=== PATIENT | male | born 1955 | race Caucasian/White ===

== ENCOUNTER 2019-03-03 20:25 | Emergency (ER) | payer SELFPAY ==
[2019-03-03] MEDS ORDERED: XYLOCAINE 2% INFILTRATI ONE (22:00)
[2019-03-03] MEDS ORDERED: BOOSTRIX IM ONE (22:45)
[2019-03-03] MEDS ORDERED: NORCO 5/325 PO ONE (22:45)
--- NOTE | 2019-03-03 22:47 | Emergency Department Report ---
- General Chief Complaint: Wound/Laceration Stated Complaint: LEFT FOOT CUT Time Seen by Provider: 03/03/19 21:42 Source: patient Mode of arrival: Ambulatory Limitations: No Limitations - History of Present Illness Initial Comments: 63-year-old male patient assessed for left wrist and left foot states he cut it with a dishwasher while cleaning drive way y this was an accident last tetanus greater than 10 years ago all bleeding was controlled by direct pressure applied the patient patient remains ambulatory there is no nerve muscle or tendon involvement no numbness no tingling no swelling Onset/Timin -: hour(s) Extremity Location: Left: Foot Place: home Patient Tetanus UTD: No Context: accidental Associated Symptoms: pain, other (dorsal foot laceration ) - Related Data Previous Rx's Medication Instructions Recorded Last Taken Type cephALEXin [Keflex] 500 mg PO Q8HR 10 Days #30 cap 03/03/19 Unknown Rx traMADol [Ultram] 50 mg PO Q6HR PRN #12 tablet 03/03/19 Unknown Rx Allergies Allergy/AdvReac Type Severity Reaction Status Date / Time No Known Allergies Allergy Unverified 03/03/19 20:57 ED Review of Systems ROS: Stated complaint: LEFT FOOT CUT Other details as noted in HPI Constitutional: denies: chills, fever Eyes: denies: eye pain, eye discharge, vision change ENT: denies: ear pain, throat pain Respiratory: denies: cough, shortness of breath, wheezing Cardiovascular: denies: chest pain, palpitations Endocrine: no symptoms reported Gastrointestinal: denies: abdominal pain, nausea, diarrhea Genitourinary: denies: urgency, dysuria Musculoskeletal: other (dorsal foot laceration 3 cm ). denies: back pain, joint swelling, arthralgia Skin: denies: rash, lesions Neurological: denies: headache, weakness, paresthesias Psychiatric: denies: anxiety, depression Hematological/Lymphatic: denies: easy bleeding, easy bruising ED Past Medical Hx - Past Medical History Previous Medical History?: No - Surgical History Past Surgical History?: No - Social History Smoking Status: Never Smoker Substance Use Type: Alcohol - Medications Home Medications: Home Medications Medication Instructions Recorded Confirmed Last Taken Type cephALEXin [Keflex] 500 mg PO Q8HR 10 Days #30 cap 03/03/19 Unknown Rx traMADol [Ultram] 50 mg PO Q6HR PRN #12 tablet 03/03/19 Unknown Rx ED Physical Exam - General Limitations: No Limitations General appearance: alert, in no apparent distress - Head Head exam: Present: atraumatic, normocephalic - Eye Eye exam: Present: normal appearance, PERRL, EOMI Pupils: Present: normal accommodation - ENT ENT exam: Present: mucous membranes moist - Neck Neck exam: Present: normal inspection, full ROM. Absent: tenderness, lymphadenopathy - Respiratory Respiratory exam: Present: normal lung sounds bilaterally. Absent: respiratory distress, wheezes, stridor, chest wall tenderness - Cardiovascular Cardiovascular Exam: Present: regular rate, normal rhythm, normal heart sounds. Absent: systolic murmur, diastolic murmur, rubs, gallop - GI/Abdominal GI/Abdominal exam: Present: soft, normal bowel sounds. Absent: distended, tenderness, guarding, rebound, rigid, bruit, hernia - Rectal Rectal exam: Present: deferred - Extremities Exam Extremities exam: Present: normal inspection, full ROM, normal capillary refill - Back Exam Back exam: Present: normal inspection, full ROM, CVA tenderness (L). Absent: CVA tenderness (R), muscle spasm, paraspinal tenderness - Neurological Exam Neurological exam: Present: alert, oriented X3, CN II-XII intact, normal gait, reflexes normal. Absent: motor sensory deficit - Psychiatric Psychiatric exam: Present: normal affect, normal mood - Skin Skin exam: Present: warm, dry, intact, normal color, other (laceration left dorsal foot . ). Absent: rash ED Course Vital Signs 03/03/19 20:57 Temperature 98.2 F Pulse Rate 51 L Respiratory 18 Rate Blood Pressure 189/81 O2 Sat by Pulse 100 Oximetry - Laceration /Wound Repair Left Dorsal Foot Wound Location: lower extremity (left dorsal foot) Wound Length (cm): 3 Wound's Depth, Shape: superficial Wound Explored: clean Irrigated w/ Saline (ccs): 20 Betadine Prep?: Yes Anesthesia: 1% Lidocaine Volume Anesthetic (ccs): 2 Wound Debrided: minimal Wound Repaired With: sutures Suture Size/Type: 3:0, proline Number of Sutures: 5 Layer Closure?: No Progress: left dorsal foot laceration 3 cm wound cleaned with betadine solution, anesthesia with 1% lidocaine 2 cc, wound irrigated wtih 20 cc sterile saline cl osed wtih 3.0 proline x 5 sutures, all bleeding controlled pt tolerated procedure with minimal distress pt given wound care instructions will follow up with pcp in 2 days for wound check , and 7-10 days for suture removal ED Medical Decision Making - Medical Decision Making laceration repair see procedure noted all bleed is controlled sterile dressing applied pt will follow up with pcp in 2-3 days and 7-10 days for suture removal. Critical care attestation.: If time is entered above; I have spent that time in minutes in the direct care of this critically ill patient, excluding procedure time. ED Disposition Clinical Impression: Foot laceration Qualifiers: Encounter type: initial encounter Laterality: left Qualified Code(s): S91.312A - Laceration without foreign body, left foot, initial encounter Disposition: TO HOME OR SELFCARE Is pt being admited?: No Does the pt Need Aspirin: No Condition: Stable Instructions: Laceration (ED) Prescriptions: cephALEXin [Keflex] 500 mg PO Q8HR 10 Days #30 cap traMADol [Ultram] 50 mg PO Q6HR PRN #12 tablet PRN Reason: Pain Referrals: JACKSON RICCI MD [Primary Care Provider] - 3-5 Days Forms: Work/School Release Form(ED) Time of Disposition: 22:57
[2019-03-03 23:27] VITALS: BP 182/82
== END 2019-03-03 23:10 | disposition home or self-care (01) ==
LOC: ED 20:25
DX: S91.312A Laceration without foreign body, left foot, initial encounter (principal); W27.8XXA Contact with other nonpowered hand tool, initial encounter; Y93.89 Activity, other specified; Y92.89 Other specified places as the place of occurrence of the external cause; Y99.8 Other external cause status
CPT/HCPCS: 90471; 90715; 99282

== ENCOUNTER 2019-03-13 18:03 | Emergency (ER) | payer SELFPAY ==
--- NOTE | 2019-03-13 19:04 | Event Note ---
ED Screening Note Date of service: 03/13/19 Time: 19:02 ED Screening Note: This is a 63 y.o. M. that presents to the ER for laceration removal from 10 days. Denies foul discharge, swelling, or erythema. This initial assessment/diagnostic orders/clinical plan/treatment(s) is/are subject to change based on patients health status, clinical progression and re- assessment by fellow clinical providers in the ED. Further treatment and workup at subsequent clinical providers discretion. Patient/guardian urged not to elope from the ED as their condition may be serious if not clinically assessed and managed. Initial orders include: ACC for further evaluation.
--- NOTE | 2019-03-13 20:17 | Emergency Department Report ---
Suture/Staple Removal - HPI Chief Complaint: Laceration/Recheck/Suture Stated Complaint: SUTURE REMOVAL Time Seen by Provider: 03/13/19 19:01 When Sutures or Rito Placed: 03/03/19 Wound Location: left dorsal foot ED Review of Systems ROS: Stated complaint: SUTURE REMOVAL Other details as noted in HPI Comment: All other systems reviewed and negative ED Past Medical Hx - Past Medical History Previous Medical History?: No - Surgical History Past Surgical History?: No - Social History Smoking Status: Never Smoker Substance Use Type: None - Medications Home Medications: Home Medications Medication Instructions Recorded Confirmed Last Taken Type cephALEXin [Keflex] 500 mg PO Q8HR 10 Days #30 cap 03/03/19 Unknown Rx traMADol [Ultram] 50 mg PO Q6HR PRN #12 tablet 03/03/19 Unknown Rx Suture Removal Exam - Exam General: Vital signs noted. No distress. Alert and acting appropriately. Wound: No Pathologic Erythema, No Tenderness, No Drainage, No Pus, No Wound Dehiscence Other Systems: All other systems reviewed and are unremarkable. well healed laceration with sutures in place to the left dorsal foot no erythema, no drainage, no skin denuding, no wound dehiscence 2+ distal pulses sensation intact FROM of the left foot able to move all toes ED Course Vital Signs 03/13/19 19:01 Temperature 98.1 F Pulse Rate 53 L Respiratory 16 Rate Blood Pressure 188/92 O2 Sat by Pulse 100 Oximetry ED Recheck MDM - Medical Decision Making pt is a 63 yo male who presents to the ED for suture removal. pt had sutures placed on 03/03/19 on the left dorsal foot. laceration is well healed, well approximated, clean, dry, intact, no signs of infection, no wound dehiscence, all sutures removed without difficultly and with no complications and laceration is healed and well intact. pt given tetanus immunization during last ED visit. pt states he finished his abx. Critical care attestation.: If time is entered above; I have spent that time in minutes in the direct care of this critically ill patient, excluding procedure time. ED Disposition Clinical Impression: Visit for suture removal Disposition: DC-01 TO HOME OR SELFCARE Is pt being admited?: No Does the pt Need Aspirin: No Condition: Stable Instructions: Suture Removal (ED) Additional Instructions: Continue to keep area clean and dry. May wash with soap and water. It is okay to shower. no hot tub or pool. Follow-up with a primary care doctor as needed. Return to the emergency room for any new or worsening symptoms. Referrals: [facility] [Outside] - 2-3 Days [facility] [Provider Group] - 2-3 Days [facility] [Outside] - 2-3 Days Time of Disposition: 20:16 Print Language: URDU
[2019-03-13 21:03] VITALS: BP 170/84
== END 2019-03-13 20:30 | disposition home or self-care (01) ==
LOC: ED 18:03
DX: S91.312D Laceration without foreign body, left foot, subsequent encounter (principal); W26.8XXD Contact with other sharp object(s), not elsewhere classified, subsequent encounter

== ENCOUNTER 2020-08-09 11:21 | Observation (INO) | payer OTHER ==
--- NOTE | 2020-08-09 11:31 | Event Note ---
ED Screening Note Date of service: 08/09/20 Time: 11:29 ED Screening Note: Complains of stroke symptoms starting around 530 this morning States he had drooping to one side of his face and unable to move and diaphoresis History of stroke and hypothyroidism Symptoms have resolved This initial assessment/diagnostic orders/clinical plan/treatment(s) is/are subject to change based on patients health status, clinical progression and re- assessment by fellow clinical providers in the ED. Further treatment and workup at subsequent clinical providers discretion. Patient/guardian urged not to elope from the ED as their condition may be serious if not clinically assessed and managed. Initial orders include: Labs CT head EKG
--- NOTE | 2020-08-09 12:39 | Cat Scan Report ---
CT BRAIN: 08/09/2020 INDICATION / CLINICAL INFORMATION: stroke symptoms. COMPARISON: None available. FINDINGS: BRAIN/INTRACRANIAL STRUCTURES: Unenhanced CT images of the brain demonstrate no evidence of acute int racranial abnormality. Ventricles and sulci are within normal limits of size and shape for a patient of this age. Moderate chronic white matter hypoattenuation is present in the peritrigonal white matter, consistent with chronic small vessel ischemic change. There is no CT evidence of acute large vessel territory ischemic injury, hemorrhage, or mass. There a re no abnormal extra-axial fluid collections. EXTRACRANIAL STRUCTURES: Unremarkable. IMPRESSION: No acute abnormality. All CT scans at this location are performed using dose reduction to ALARA by means of automated expos ure control. Signer Name: Scottie Traylor MD Signed: 08/09/2020 12:35 PM Workstation Name: [id number]
[2020-08-09 12:47] LABS: Basophils % (Auto) 0.4 % (0.0-1.8); Eosinophils % (Auto) 0.2 % (0.0-4.3); Hematocrit 39.3 % (35.5-45.6); Hemoglobin 13.3 gm/dl (11.8-15.2); Lymphocytes # (Auto) 0.9 K/mm3 (1.2-5.4); Lymphocytes % (Auto) 17.8 % (13.4-35.0); Mean Corpuscular HGB Conc 34 % (32-34); Mean Corpuscular Volume 97 fl (84-94); Monocytes # (Auto) 0.4 K/mm3 (0.0-0.8); Monocytes % (Auto) 7.7 % (0.0-7.3); Platelet Count 147 K/mm3 (140-440); Red Blood Count 4.04 M/mm3 (3.65-5.03); Red Cell Distribution Width 14.3 % (13.2-15.2)
[2020-08-09 13:03] LABS: INR 0.98 (0.87-1.13)
[2020-08-09 13:04] LABS: Partial Thromboplastin Time 33.6 Sec. (24.2-36.6); Thrombin Time 16.7 Sec. (15.1-19.6)
[2020-08-09 13:06] LABS: Creatine Kinase MB 2.4 ng/mL (0.0-4.0)
[2020-08-09 13:11] LABS: Alanine Aminotransferase 21 units/L (7-56); Albumin 4.3 g/dL (3.9-5); BUN/Creatinine Ratio 10; Blood Urea Nitrogen 10 mg/dL (9-20); Calcium 9.1 mg/dL (8.4-10.2); Hemolysis Index 3
--- NOTE | 2020-08-09 13:11 | Emergency Department Report ---
ED Neuro Deficit HPI - General Chief Complaint: Neuro Symptoms/Deficit Stated Complaint: POSS CVA Time Seen by Provider: 08/09/20 11:28 Source: patient Mode of arrival: Ambulatory Limitations: No Limitations - History of Present Illness Initial Comments: [facility] Tele[facility] Consult Services Stat Consult Date of Service: 08/09/2020 12:03:22 Impression: R56.9 - Seizures G45.9 - Transient cerebral ischaemic attack, unspecified Comments/Sign-Out: Brevity an unusual nature the symptoms suggest seizure TIAs another possibility. He needs MRI the brain without and with contrast, EEG, metabolic profile. I would not start him on medication list something obvious turns up or he has another event. If he does he see a local neurologist. EKG monitoring, echocardiogram, carotid ultrasound. CT HEAD: Showed No Acute Hemorrhage or Acute Core Infarct Reviewed No acute changes; radiology report concurs Metrics: [employer] Notification Time: 08/09/2020 12:02:47 Stamp Time: 08/09/2020 12:03:22 Callback Response Time: 08/09/2020 12:05:55 Our recommendations are outlined below. Recommendations: No medications at this time Imaging Studies: MRI Head Carotid Dopplers Other WorkUp: Check CMP Check B12 level Check TSH Disposition: Neurology Follow Up Recommended Sign Out: Discussed with Emergency Department Provider Chief Complaint: Episode of confusion History of Present Illness: Patient is a 64 year old Male. this is a 64-year-old man who was interviewed through his daughter because he is from [facility] and only speaks his wiyot language. He went to bed normal at 1999 last night and woke this morning at about 0530 confused. His told the murali bailey that his mouth was twisted as was one of his hands and he couldn't speak. This only lasted a minute or so and he was fine afterwards but has no memory of the event. Risk factors listed below noting he is on no medication. In addition he is hypothyroid in the past. Past Medical History: Hypertension Hyperlipidemia There is NO history of Diabetes Mellitus There is NO history of Atrial Fibrillation There is NO history of Coronary Artery Disease There is NO history of Stroke Anticoagulant use: No Examination: BP(144 74), Pulse(55), Blood Glucose(84) 1A: Level of Consciousness - Alert; keenly responsive + 0 1B: Ask Month and Age - Both Questions Right + 0 1C: Blink Eyes & Squeeze Hands - Performs Both Tasks + 0 2: Test Horizontal Extraocular Movements - Normal + 0 3: Test Visual Shah - No Visual Loss + 0 4: Test Facial Palsy (Use Grimace if Obtunded) - Normal symmetry + 0 5A: Test Left Arm Motor Drift - No Drift for 10 Seconds + 0 5B: Test Right Arm Motor Drift - No Drift for 10 Seconds + 0 6A: Test Left Leg Motor Drift - No Drift for 5 Seconds + 0 6B: Test Right Leg Motor Drift - No Drift for 5 Seconds + 0 7: Test Limb Ataxia (FNF/Heel-Card) - No Ataxia + 0 8: Test Sensation - Normal; No sensory loss + 0 9: Test Language/Aphasia - Normal; No aphasia + 0 10: Test Dysarthria - Normal + 0 11: Test Extinction/Inattention - No abnormality + 0 NIHSS Score: 0 Due to the immediate potential for life-threatening deterioration due to underlying acute neurologic illness, I spent 25 minutes providing critical care. This time includes time for face to face visit via telemedicine, review of medical records, imaging studies and discussion of findings with providers, the patient and/or family. Dr Hermes [facility] [employer] Case [id number] - Related Data Home Medications: Previous Rx's Medication Instructions Recorded Last Taken Type cephALEXin [Keflex] 500 mg PO Q8HR 10 Days #30 cap 03/03/19 Unknown Rx traMADoL [Ultram] 50 mg PO Q6HR PRN #12 tablet 03/03/19 Unknown Rx Allergies/Adverse Reactions: Allergies Allergy/AdvReac Type Severity Reaction Status Date / Time No Known Allergies Allergy Verified 03/13/19 18:45 ED Review of Systems ROS: Stated complaint: POSS CVA Other details as noted in HPI ED Past Medical Hx - Past Medical History Previous Medical History?: Yes Additional medical history: hyperthyroid - Surgical History Past Surgical History?: No - Social History Smoking Status: Never Smoker Substance Use Type: None - Medications Home Medications: Home Medications Medication Instructions Recorded Confirmed Last Taken Type cephALEXin [Keflex] 500 mg PO Q8HR 10 Days #30 cap 03/03/19 Unknown Rx traMADoL [Ultram] 50 mg PO Q6HR PRN #12 tablet 03/03/19 Unknown Rx ED Neuro Physical Exam - General Limitations: No Limitations, Language Barrier Suspected Stroke: No ED Course Vital Signs 08/09/20 11:29 Temperature 97 F L Pulse Rate 55 L Respiratory 18 Rate Blood Pressure 144/74 O2 Sat by Pulse 100 Oximetry - Lab Data Result diagrams: 08/09/20 12:04 08/09/20 12:04 Lab Results 08/09/20 08/09/20 08/09/20 Range/Units 11:29 12:04 12:04 WBC 5.2 (4.5-11.0) K/mm3 RBC 4.04 (3.65-5.03) M/mm3 Hgb 13.3 (11.8-15.2) gm/dl Hct 39.3 (35.5-45.6) % MCV 97 H (84-94) fl MCH 33 H (28-32) pg MCHC 34 (32-34) % RDW 14.3 (13.2-15.2) % Plt Count 147 (140-440) K/mm3 Lymph % (Auto) 17.8 (13.4-35.0) % Hitchcock % (Auto) 7.7 H (0.0-7.3) % Eos % (Auto) 0.2 (0.0-4.3) % Baso % (Auto) 0.4 (0.0-1.8) % Lymph # (Auto) 0.9 L (1.2-5.4) K/mm3 Hitchcock # (Auto) 0.4 (0.0-0.8) K/mm3 Eos # (Auto) 0.0 (0.0-0.4) K/mm3 Baso # (Auto) 0.0 (0.0-0.1) K/mm3 Seg Neutrophils % 73.9 H (40.0-70.0) % Seg Neutrophils # 3.8 (1.8-7.7) K/mm3 PT (12.2-14.9) Sec. INR (0.87-1.13) APTT (24.2-36.6) Sec. Thrombin Time (15.1-19.6) Sec. POC Glucose 84 (70-105) mg/dL CK-MB (CK-2) (0.0-4.0) ng/mL Troponin T < 0.010 (0.00-0.029) ng/mL 08/09/20 08/09/20 Range/Units 12:04 12:04 WBC (4.5-11.0) K/mm3 RBC (3.65-5.03) M/mm3 Hgb (11.8-15.2) gm/dl Hct (35.5-45.6) % MCV (84-94) fl MCH (28-32) pg MCHC (32-34) % RDW (13.2-15.2) % Plt Count (140-440) K/mm3 Lymph % (Auto) (13.4-35.0) % Hitchcock % (Auto) (0.0-7.3) % Eos % (Auto) (0.0-4.3) % Baso % (Auto) (0.0-1.8) % Lymph # (Auto) (1.2-5.4) K/mm3 Hitchcock # (Auto) (0.0-0.8) K/mm3 Eos # (Auto) (0.0-0.4) K/mm3 Baso # (Auto) (0.0-0.1) K/mm3 Seg Neutrophils % (40.0-70.0) % Seg Neutrophils # (1.8-7.7) K/mm3 PT 12.8 (12.2-14.9) Sec. INR 0.98 (0.87-1.13) APTT 33.6 (24.2-36.6) Sec. Thrombin Time 16.7 (15.1-19.6) Sec. POC Glucose (70-105) mg/dL CK-MB (CK-2) 2.4 (0.0-4.0) ng/mL Troponin T (0.00-0.029) ng/mL Critical care attestation.: If time is entered above; I have spent that time in minutes in the direct care of this critically ill patient, excluding procedure time. ED Disposition Clinical Impression: Seizure Disposition: DC-09 OP ADMIT IP TO THIS HOSP Is pt being admited?: Yes Condition: Stable Referrals: PRIMARY CARE, [Primary Care Provider] - 3-5 Days
--- NOTE | 2020-08-09 13:25 | Emergency Department Report ---
ED Neuro Deficit HPI - General Chief Complaint: Neuro Symptoms/Deficit Stated Complaint: POSS CVA Time Seen by Provider: 08/09/20 11:28 Source: patient Mode of arrival: Ambulatory Limitations: No Limitations, Language Barrier - History of Present Illness Initial Comments: Patient is a 64-year-old male with h/o hypertension,hyperlipidemia and hypothyroidism. He went to bed normal at 2000 last night and woke this morning at about 0530 confused. His told the daughter that his mouth was twisted as was one of his hands and he couldn't speak. This only lasted a minute or so and he was fine afterwards but has no memory of the event. Patient currently denying any symptoms except for mild dizziness. -: Sudden, This morning Location: speech, right face, altered Presenting Symptoms: Present: Facial Droop/Numbness, Unable to Speak Clearly History of same: No Place: home Associated Symptoms: denies other symptoms - Related Data Home Medications: Previous Rx's Medication Instructions Recorded Last Taken Type cephALEXin [Keflex] 500 mg PO Q8HR 10 Days #30 cap 03/03/19 Unknown Rx traMADoL [Ultram] 50 mg PO Q6HR PRN #12 tablet 03/03/19 Unknown Rx Allergies/Adverse Reactions: Allergies Allergy/AdvReac Type Severity Reaction Status Date / Time No Known Allergies Allergy Verified 03/13/19 18:45 ED Review of Systems ROS: Stated complaint: POSS CVA Other details as noted in HPI Comment: All other systems reviewed and negative Constitutional: denies: chills, fever Respiratory: denies: cough, shortness of breath, SOB with exertion Cardiovascular: denies: chest pain, palpitations, dyspnea on exertion Gastrointestinal: denies: abdominal pain, nausea, vomiting Musculoskeletal: denies: back pain Neurological: denies: headache, weakness ED Past Medical Hx - Past Medical History Previous Medical History?: Yes Additional medical history: hyperthyroid - Surgical History Past Surgical History?: No - Social History Smoking Status: Never Smoker Substance Use Type: None - Medications Home Medications: Home Medications Medication Instructions Recorded Confirmed Last Taken Type cephALEXin [Keflex] 500 mg PO Q8HR 10 Days #30 cap 03/03/19 Unknown Rx traMADoL [Ultram] 50 mg PO Q6HR PRN #12 tablet 03/03/19 Unknown Rx ED Neuro Physical Exam - General Limitations: No Limitations, Language Barrier General appearance: alert, in no apparent distress Suspected Stroke: Yes - Head Head exam: Present: atraumatic, normocephalic, normal inspection - Eye Eye exam: Present: normal appearance - ENT ENT exam: Present: normal exam, normal orophraynx, mucous membranes moist - Neck Neck exam: Present: normal inspection. Absent: tenderness, meningismus - Respiratory Respiratory exam: Present: normal lung sounds bilaterally - Cardiovascular Cardiovascular Exam: Present: regular rate, normal rhythm, normal heart sounds - GI/Abdominal GI/Abdominal exam: Present: soft, normal bowel sounds. Absent: distended, tenderness, guarding, rebound, rigid, mass, bruit, pulsatile mass, hernia - Extremities Exam Extremities exam: Present: normal inspection, full ROM, normal capillary refill. Absent: tenderness - Back Exam Back exam: Present: normal inspection, full ROM. Absent: CVA tenderness (R), CVA tenderness (L) - Neurological Exam Neurological exam: Present: alert, oriented X3, CN II-XII intact, normal gait, reflexes normal. Absent: motor sensory deficit - NIHSS Assessment Interval: Baseline 1a. Level of Consciousness: alert/keenly responsive 1b. LOC Questions: answers both correctly 1c. LOC Commands: performs tasks correctly 2. Best Gaze: normal 3. Visual: no visual loss 4. Facial Palsy: normal symmetrical movement 5b. Motor Arm Right: no drift 5a. Motor Arm Left: no drift 6a. Motor Leg Left: no drift 6b. Motor Leg Right: no drift 7. Limb Ataxia: absent 8. Sensory: normal 9. Best Language: no aphasia 10. Dysarthria: normal 11. Extinction/Inattention: no abnormality Total Score: 0 Stroke Severity: No Stroke Symptoms - Psychiatric Psychiatric exam: Present: normal mood - Skin Skin exam: Present: warm, intact, normal color ED Course Vital Signs 08/09/20 11:29 Temperature 97 F L Pulse Rate 55 L Respiratory 18 Rate Blood Pressure 144/74 O2 Sat by Pulse 100 Oximetry - Lab Data Result diagrams: 08/09/20 12:04 08/09/20 12:04 Lab Results 08/09/20 08/09/20 08/09/20 Range/Units 11:29 12:04 12:04 WBC 5.2 (4.5-11.0) K/mm3 RBC 4.04 (3.65-5.03) M/mm3 Hgb 13.3 (11.8-15.2) gm/dl Hct 39.3 (35.5-45.6) % MCV 97 H (84-94) fl MCH 33 H (28-32) pg MCHC 34 (32-34) % RDW 14.3 (13.2-15.2) % Plt Count 147 (140-440) K/mm3 Lymph % (Auto) 17.8 (13.4-35.0) % [place] % (Auto) 7.7 H (0.0-7.3) % Eos % (Auto) 0.2 (0.0-4.3) % Baso % (Auto) 0.4 (0.0-1.8) % Lymph # (Auto) 0.9 L (1.2-5.4) K/mm3 [place] # (Auto) 0.4 (0.0-0.8) K/mm3 Eos # (Auto) 0.0 (0.0-0.4) K/mm3 Baso # (Auto) 0.0 (0.0-0.1) K/mm3 Seg Neutrophils % 73.9 H (40.0-70.0) % Seg Neutrophils # 3.8 (1.8-7.7) K/mm3 PT (12.2-14.9) Sec. INR (0.87-1.13) APTT (24.2-36.6) Sec. Thrombin Time (15.1-19.6) Sec. Sodium 129 L (137-145) mmol/L Potassium 4.6 (3.6-5.0) mmol/L Chloride 95.4 L (98-107) mmol/L Carbon Dioxide 26 (22-30) mmol/L Anion Gap 12 mmol/L BUN 10 (9-20) mg/dL Creatinine 1.0 (0.8-1.3) mg/dL Estimated GFR > 60 ml/min BUN/Creatinine Ratio 10 % Glucose 92 (75-100) mg/dL POC Glucose 84 (70-105) mg/dL Calcium 9.1 (8.4-10.2) mg/dL Total Bilirubin 0.60 (0.1-1.2) mg/dL AST 33 (5-40) units/L ALT 21 (7-56) units/L Alkaline Phosphatase 58 (35-129) units/L Total Creatine Kinase (55-170) units/L CK-MB (CK-2) (0.0-4.0) ng/mL CK-MB (CK-2) Rel Index (0-4) Troponin T < 0.010 (0.00-0.029) ng/mL Total Protein 8.2 (6.3-8.2) g/dL Albumin 4.3 (3.9-5) g/dL Albumin/Globulin Ratio 1.1 % 08/09/20 08/09/20 Range/Units 12:04 12:04 WBC (4.5-11.0) K/mm3 RBC (3.65-5.03) M/mm3 Hgb (11.8-15.2) gm/dl Hct (35.5-45.6) % MCV (84-94) fl MCH (28-32) pg MCHC (32-34) % RDW (13.2-15.2) % Plt Count (140-440) K/mm3 Lymph % (Auto) (13.4-35.0) % [place] % (Auto) (0.0-7.3) % Eos % (Auto) (0.0-4.3) % Baso % (Auto) (0.0-1.8) % Lymph # (Auto) (1.2-5.4) K/mm3 [place] # (Auto) (0.0-0.8) K/mm3 Eos # (Auto) (0.0-0.4) K/mm3 Baso # (Auto) (0.0-0.1) K/mm3 Seg Neutrophils % (40.0-70.0) % Seg Neutrophils # (1.8-7.7) K/mm3 PT 12.8 (12.2-14.9) Sec. INR 0.98 (0.87-1.13) APTT 33.6 (24.2-36.6) Sec. Thrombin Time 16.7 (15.1-19.6) Sec. Sodium (137-145) mmol/L Potassium (3.6-5.0) mmol/L Chloride (98-107) mmol/L Carbon Dioxide (22-30) mmol/L Anion Gap mmol/L BUN (9-20) mg/dL Creatinine (0.8-1.3) mg/dL Estimated GFR ml/min BUN/Creatinine Ratio % Glucose (75-100) mg/dL POC Glucose (70-105) mg/dL Calcium (8.4-10.2) mg/dL Total Bilirubin (0.1-1.2) mg/dL AST (5-40) units/L ALT (7-56) units/L Alkaline Phosphatase (35-129) units/L Total Creatine Kinase 279 H (55-170) units/L CK-MB (CK-2) 2.4 (0.0-4.0) ng/mL CK-MB (CK-2) Rel Index 0.8 (0-4) Troponin T (0.00-0.029) ng/mL Total Protein (6.3-8.2) g/dL Albumin (3.9-5) g/dL Albumin/Globulin Ratio % - EKG Data -: EKG Interpreted by Me EKG shows normal: sinus rhythm Rate: bradycardia - Radiology Data Radiology results: report reviewed - Medical Decision Making Patient is a 64-year-old male with h/o hypertension,hyperlipidemia and hypoth yroidism. He went to bed normal at 2000 last night and woke this morning at about 0530 confused. His told the daughter that his mouth was twisted as was one of his hands and he couldn't speak. This only lasted a minute or so and he was fine afterwards but has no memory of the event. Patient currently denying any symptoms except for mild dizziness. Patient examined by neurologist and stated patient symptoms is TIA vs Seizure and advised to be admitted for further work-up. I discussed the patient with Dr Hoffman he agreed to admit to the hospital. Critical care attestation.: If time is entered above; I have spent that time in minutes in the direct care of this critically ill patient, excluding procedure time. ED Disposition Clinical Impression: Seizure, TIA (transient ischemic attack) Disposition: -09 OP ADMIT IP TO THIS HOSP Is pt being admited?: Yes Condition: Stable Referrals: PRIMARY CARE, [Primary Care Provider] - 3-5 Days
[2020-08-09] MEDS ORDERED: ONDANSETRON 4 MG/2 ML INJ IV PRN (14:02)
[2020-08-09] MEDS ORDERED: METOCLOPRAMIDE 10 MG TAB PO PRN (14:02)
[2020-08-09] MEDS ORDERED: ACETAMINOPHEN 325 MG TAB PO PRN (14:02)
[2020-08-09] MEDS ORDERED: MAGNESIUM HYDROXIDE (MOM) ORAL LIQD UDC PO PRN (14:02)
[2020-08-09] MEDS ORDERED: PROMETHAZINE 25 MG RECT SUPP PR PRN (14:02)
--- NOTE | 2020-08-09 14:06 | History and Physical Report ---
History of Present Illness Chief complaint: His mouth was twisted and he could not talk History of present illness: 64 YO Male with HTN, HLD, Hypothyroidism, Cerebral Atherosclerosis presents to ED for evaluation. Pt was in his usual state of health at bedtime which was around 2000hrs. Pt awoke from sleep around 0530hrs, and was found to have difficulty speaking and facial droop. Patient transported to [facility] via private vehicle for further care and evaluation. Patient seen and evaluated in the emergency department. Lab and imaging studies reviewed. Patient found to have neurologic deficit and a code stroke was called. Patient initiated on stroke protocol. Teleneurology consulted. Patient initiated on antiplatelet therapy. Patient placed in observation status and admitted to medical floor. Patient denies fever, chills, chest pain, palpitation, productive cough, skin rash, recent ill contacts, or known exposure to COVID-19. No prior admission for review. No medication listed at time of admission for reconciliation. Advanced care planning conducted in ED. Past History Past Medical History: hypertension, hyperlipidemia, hypothyroidism Past Surgical History: No surgical history, Other (Reviewed) Social history: , lives with family Family history: hypertension Medications and Allergies Allergies Allergy/AdvReac Type Severity Reaction Status Date / Time No Known Allergies Allergy Verified 03/13/19 18:45 Home Medications Medication Instructions Recorded Confirmed Last Taken Type cephALEXin [Keflex] 500 mg PO Q8HR 10 Days #30 cap 03/03/19 Unknown Rx traMADoL [Ultram] 50 mg PO Q6HR PRN #12 tablet 03/03/19 Unknown Rx Review of Systems Constitutional: no weight loss, no weight gain, no fever, no chills Ears, nose, mouth and throat: no ear pain, no ear discharge, no decreased hearing, no nose pain, no nasal discharge Cardiovascular: no chest pain, no orthopnea, no palpitations, no edema, no syncope, no shortness of breath Respiratory: no cough, no excessive sputum Gastrointestinal: no abdominal pain, no diarrhea, no constipation, no hematemesis Genitourinary Male: no hematuria, no flank pain, no discharge, no urinary frequency, no urinary hesitancy Rectal: no pain, no incontinence, no bleeding Musculoskeletal: no neck stiffness, no neck pain, no shooting arm pain, no arm numbness/tingling Integumentary: no rash, no pruritis, no redness, no sores, no wounds Neurological: weakness, lack of coordination, change in speech, motor disturbance, no tingling, no seizures, no tremors, no migraines Psychiatric: no anxiety, no memory loss, no sleep disturbances, no insomnia, no hypersomnia, no change in appetite Endocrine: no cold intolerance, no heat intolerance, no excessive thirst, no polydipsia, no polyuria, no excessive sweating Hematologic/Lymphatic: no easy bruising, no easy bleeding Allergic/Immunologic: no wheezing Exam - Constitutional Vitals: Temp Pulse Resp BP Pulse Ox 97 F L 55 L 18 144/74 100 08/09/20 11:29 08/09/20 11:29 08/09/20 11:29 08/09/20 11:29 08/09/20 11:29 General appearance: Present: mild distress - EENT Eyes: Present: PERRL ENT: hearing intact, clear oral mucosa - Neck Neck: Present: supple, normal ROM - Respiratory Respiratory effort: normal Respiratory: bilateral: CTA - Cardiovascular Heart Sounds: Present: S1 & S2. Absent: rub, click - Extremities Extremities: pulses symmetrical, No edema Peripheral Pulses: within normal limits - Abdominal General gastrointestinal: Present: soft, non-tender, non-distended, normal bowel sounds Male genitourinary: Present: normal - Integumentary Integumentary: Present: clear, warm, dry - Musculoskeletal Musculoskeletal: gait normal, strength equal bilaterally - Psychiatric Psychiatric: appropriate mood/affect, intact judgment & insight - Neurologic Neurologic: CNII-XII intact, moves all extremities HEART Score - HEART Score Troponin: Troponin T < 0.010 ng/mL (0.00-0.029) 08/09/20 12:04 Results - Labs CBC & Chem 7: 08/09/20 12:04 08/09/20 12:04 Labs: Abnormal lab results 08/09/20 08/09/20 08/09/20 Range/Units 12:04 12:04 12:04 MCV 97 H (84-94) fl MCH 33 H (28-32) pg [place] % (Auto) 7.7 H (0.0-7.3) % Lymph # (Auto) 0.9 L (1.2-5.4) K/mm3 Seg Neutrophils % 73.9 H (40.0-70.0) % Sodium 129 L (137-145) mmol/L Chloride 95.4 L (98-107) mmol/L Total Creatine Kinase 279 H (55-170) units/L Assessment and Plan - Patient Problems (1) CVA (cerebral vascular accident) Current Visit: Yes Status: Acute Plan to address problem: CVA protocol: CT head, neuro check, seizure precaution, aspiration precaution, physical therapy consulted, Occupational Therapy consulted speech therapy consulted, teleneurology consulted in ED, antiplatelet therapy, lipid panel, statin therapy. (2) Hyperlipidemia Current Visit: Yes Status: Acute Qualifiers: Hyperlipidemia type: mixed hyperlipidemia Qualified Code(s): E78.2 - Mixed hyperlipidemia Plan to address problem: Lipid panel, statin therapy. (3) Hypothyroidism Current Visit: Yes Status: Acute Qualifiers: Hypothyroidism type: acquired Qualified Code(s): E03.9 - Hypothyroidism, unspecified Plan to address problem: Continue current therapy, supportive care. (4) DVT prophylaxis Current Visit: Yes Status: Acute Plan to address problem: SCD to bilateral lower extremities while in bed, patient is ambulatory (5) Advance care planning Current Visit: Yes Status: Acute Plan to address problem: Patient is full code, care plan discussed, prognosis discussed, patient family knowledges understanding and agreement with care plan, +30 minutes.
--- NOTE | 2020-08-09 15:47 | Vascular Lab Report ---
"DUPLEX DOPPLER ULTRASOUND CAROTID, BILATERAL INDICATION: stroke. FINDINGS: RIGHT CAROTID: Mild plaque Right CCA velocity: 76 cm/sec. Right ICA peak systolic velocity: 107 cm/sec. ICA/CCA PSV Ratio: 1.4. Right Vertebral Artery: Antegrade flow. LEFT CAROTID: Mild plaque Left CCA velocity: 61 cm/sec. Left ICA peak systolic velocity: 119 cm/sec. ICA/CCA PSV Ratio: 2. Left Vertebral Artery: Antegrade flow. IMPRESSION: 1. Right Internal Carotid Artery: Less than 50% diameter stenosis. 2. Left Internal Carotid Artery: Less than 50% diameter stenosis. Velocity criteria are extrapolated from diameter data as defined by the Society of Radiologists in Ul trasound Consensus Conference, Radiology 2003; 229;340-346. Degree of Stenosis (%) || ICA PSV (cm/sec) || Plaque estimate (%) || ICA/CCA PSV Ratio Normal <125 None <2.0 <50 <125 <50 <2.0 50-69 125-230 50 2.0-4.0 70 but less than 100 >230 50 >4.0 Near occlusion High, low, or none visible variable Total occlusion None visible; no lumen N/A Signer Name: El Ceballos MD Signed: 08/09/2020 3:43 PM Workstation Name: [id number]"
[2020-08-10] MEDS ORDERED: ASPIRIN 325 MG TAB PO SCH (10:00)
[2020-08-10 10:21] LABS: Chol/HDL Ratio 3.35 %
--- NOTE | 2020-08-10 10:59 | Magnetic Resonance Report ---
MRI BRAIN WITHOUT CONTRAST INDICATION / CLINICAL INFORMATION: cva. TECHNIQUE: Multisequence, multiplanar images were obtained. COMPARISON: CT head dated 08/09/2019 FINDINGS: CEREBRAL and CEREBELLAR HEMISPHERES: No evidence of mass or mass effect. No midline shift. No acute hemorrhage. No diffusion restriction to suggest acute infarct. No extra-axial fluid collection. T here is mild to moderate increased T2 signal in the white matter of the posterior frontal lobes and p arietal lobes bilaterally consistent with chronic small vessel ischemic change. No chronic infarct. VENTRICLES: Normal in size and configuration for age. VISUALIZED ORBITS: No significant abnormality. VISUALIZED PARANASAL SINUSES: There is moderate mucosal thickening throughout all paranasal sinuses. The ethmoid air cells are most affected. ADDITIONAL FINDINGS: None. IMPRESSION: No evidence for acute ischemia, hemorrhage or mass. No acute intracranial process. Chronic ischemic changes in the white matter as described. Chronic pansinusitis as described. Signer Name: Travis Ordaz Jr, MD Signed: 08/10/2020 10:54 AM Workstation Name: [id number]
--- NOTE | 2020-08-10 11:17 | Consultation ---
History of Present Illness Consult date: 08/10/20 Reason for Consult: CVA Chief complaint: Transient facial weakness History of present illness: 64 yo male, right-handed, with htn, hld who presents with acute onset of his face being "twisted" per his , severe diaphoresis, and slurred speech. He had woken up around 5:00 am when these symptoms were noted. He had gone to bed after 1:00 am. His symptoms lasted for less than an hour. No associated chest pain/pressure. In the ED, no tPA as his symptoms had resolved. Past History Past Medical History: hypertension, hyperlipidemia, hypothyroidism Past Surgical History: No surgical history, Other (Reviewed) Social history: , lives with family Family history: hypertension Medications and Allergies Allergies Allergy/AdvReac Type Severity Reaction Status Date / Time No Known Allergies Allergy Verified 03/13/19 18:45 Home Medications Medication Instructions Recorded Confirmed Last Taken Type No Known Home Medications [No 08/09/20 08/09/20 Unknown History Reported Home Medications] Active Meds: Active Medications Acetaminophen (Acetaminophen 325 Mg Tab) 650 mg PO Q4H PRN PRN Reason: Pain, Mild (1-3) Aspirin (Aspirin 325 Mg Tab) 325 mg PO QDAY [facility] [place] Last Admin: 08/10/20 09:53 Dose: 325 mg Documented by: Atorvastatin Calcium (Atorvastatin 40 Mg Tab) 40 mg PO QHS [facility] [place] Last Admin: 08/09/20 22:27 Dose: 40 mg Documented by: Bisacodyl (Bisacodyl 10 Mg Rect Supp) 10 mg OR QDAY PRN PRN Reason: Constipation Magnesium Hydroxide (Magnesium Hydroxide (Mom) Oral Liqd Udc) 30 ml PO Q4H PRN PRN Reason: Constipation Metoclopramide HCl (Metoclopramide 10 Mg Tab) 10 mg PO Q6H PRN PRN Reason: Nausea And Vomiting Ondansetron HCl (Ondansetron 4 Mg/2 Ml Inj) 4 mg IV Q8H PRN PRN Reason: Nausea And Vomiting Promethazine HCl (Promethazine 25 Mg Rect Supp) 25 mg OR Q6H PRN PRN Reason: Nausea And Vomiting Sodium Chloride (Sodium Chloride 0.9% 10 Ml Flush Syringe) 10 ml IV PRN PRN PRN Reason: LINE FLUSH Review of Systems All systems: negative (as per HPI;) Physical Examination - Vital Signs Vital Signs: Vital Signs Temp Pulse Resp BP Pulse Ox 97 F L 55 L 18 144/74 100 08/09/20 11:29 08/09/20 11:29 08/09/20 11:29 08/09/20 11:08/09/20 11:29 - Physical Exam Narrative exam: Gen: nad, well-nourished; Head: normocephalic; Eyes: no gaze deviation; no ptosis; ENT: normal vocalization; CVS: warm and well-perfused; Pulm: no respiratory distress; GI: non-distended; Ext: no cyanosis at distal extremities; Skin: no acute rash or hives at distal extremities; Heme: no pathologic ecchymosis at distal extremities; Neuro: alert, oriented to name, age, month, year, surroundings, no dysarthria, no aphasia, CN 2 - PERRL, visual araiza intact, CN 3, 4, 6 - EOMI, CN 5 - facial sensation symmetric to light touch, CN 7 - facial movement symmetric, CN 8 - hearing grossly intact, CN 9, 10 - uvula midline, CN 11 - shrug symmetric, CN 12 - tongue midline; Motor - at least 5-/5 in all exts; Sensory - light touch symmetric, Cerebellar - fnf /hts intact, Gait - deferred secondary to fall risk; NIHSS (1a.) Level of Consciousness:0 (1b.) LOC Questions:0 (1c.) LOC Commands:0 (2.) Best Gaze:0 (3.) Visual:0 (4.) Facial Palsy:0 (5a.) Motor Arm, Left:0 (5b.) Motor Arm, Right:0 (6a.) Motor Leg, Left:0 (6b.) Motor Leg, Right:0 (7.) Limb Ataxia:0 (8.) Sensory:0 (9.) Best Language:0 (10.) Dysarthria:0 (11.) Extinction and Inattention:0 NIHSS Total Score: 0 Results - Laboratory Findings CBC and BMP: 08/09/20 12:04 08/09/20 12:04 Abnormal Lab Findings: Abnormal Labs 08/09/20 08/09/20 08/09/20 12:04 12:04 12:04 MCV 97 H MCH 33 H [place] % (Auto) 7.7 H Lymph # (Auto) 0.9 L Seg Neutrophils % 73.9 H Sodium 129 L Chloride 95.4 L Total Creatine Kinase 279 H Cholesterol LDL Cholesterol Direct HDL Cholesterol 08/10/20 08:49 MCV MCH [place] % (Auto) Lymph # (Auto) Seg Neutrophils % Sodium Chloride Total Creatine Kinase Cholesterol 208 H LDL Cholesterol Direct 142 H HDL Cholesterol 62 H Assessment and Plan 64 yo male, right-handed, with htn, hld who presents with acute onset of his face being "twisted" per his , severe diaphoresis, and slurred speech. He had woken up around 5:00 am when these symptoms were noted. He had gone to bed after 1:00 am. His symptoms lasted for less than an hour. PLAN 1. TIA: ASA 325 mg PO qday; Plavix 75 mg PO qday x 21 days; MRI Brain w/o contrast, CTA Head/Neck w/ & w/o contrast, TTEcho, CUS, check LDL/HgbA1C/TSH, baseline CXR, EKG; telemetry, SBP goal 160-200 mmHg and DBP 80-100 mmHg for now. Statin therapy for a goal LDL of 70, when patient passes swallow evaluation. P T/OT/ST/Swallow evaluation. Long-term risk-factor modification, including a strict diet/exercise regimen for secondary stroke prophylaxis. 2. Seizure (or post-cital state) - EEG ordered; MRI Brain w/ contrast ordered. 3. Hypertension - goal SBP 160-200 mmHg and DBP 80-100 mmHg. 4. Hyperlipidemia - goal LDL of 70 w/ statin therapy if no contraindications.
[2020-08-10] MEDS ORDERED: FLU VACC QUAD 2020-2021 (6 months +)/PF 60 0.5 ML SYRINGE IM ONE (12:00)
[2020-08-10 12:18] VITALS: BP 131/72
--- NOTE | 2020-08-10 14:35 | Discharge Summary ---
Providers - Providers Date of Admission: 08/09/20 14:02 Date of discharge: 08/10/20 Attending physician: LAMIN GIL 08/09/20 14:02 Occupational Therapy Evaluate and Treat [CONS] Routine Comment: Reason For Exam: Neuro deficits Physical Therapy Evaluation and Treat [CONS] Routine Comment: Reason For Exam: Neuro deficits 08/09/20 14:05 Speech Therapy Evaluation and Treat [CONS] Routine Reason For Exam: swallow eval 08/10/20 08:35 Consult to Physician [CONS] Routine Comment: Consulting Provider: RANDY CARRASCO Physician Instructions: Reason For Exam: acute CVA Primary care physician: CHIP TUNER Hospitalization Condition: Stable Disposition: DC-01 TO HOME OR SELFCARE Time spent for discharge: 34 minutes Core Measure Documentation - Palliative Care Palliative Care/ Comfort Measures: Not Applicable - Core Measures Any of the following diagnoses?: stroke - Stroke Discharge Requirements Statin for LDL = or >70 mg/dl on DC: Yes Anticoag for atrial fib/atrial flutter: Not Applicable Antithrombotic for ischemic stroke: Yes Exam - Constitutional Vitals: Temp Pulse Resp BP Pulse Ox 98.2 F 49 L 18 131/72 97 08/10/20 12:07 08/10/20 12:07 08/10/20 12:07 08/10/20 12:07 08/10/20 12:07 Plan Activity: advance as tolerated Weight Bearing Status: Weight Bear as Tolerated Diet: low fat, low salt Additional Instructions: EEG as outpt. f/u with neurology in one week Follow up with: PRIMARY CARE, [Primary Care Provider] - 3-5 Days Prescriptions: AtorvaSTATin [Lipitor] 40 mg PO QHS #30 tablet Aspirin EC [Halfprin EC] 81 mg PO QDAY #30 tablet. Clopidogrel [Plavix] 75 mg PO QDAY #21 tablet
== END 2020-08-10 15:34 | disposition home or self-care (01) ==
LOC: ED 11:21 → 3A 14:02 → 4A 19:26
PROVIDERS: ADMIT Internal Medicine; ATTEND Internal Medicine
DX: I63.9 Cerebral infarction, unspecified (principal); I10 Essential (primary) hypertension; E03.9 Hypothyroidism, unspecified; E78.5 Hyperlipidemia, unspecified; R29.700 NIHSS score 0; R56.9 Unspecified convulsions; Z79.02 Long term (current) use of antithrombotics/antiplatelets; Z79.899 Other long term (current) drug therapy
CPT/HCPCS: 36415; 70450; 70551; 80053; 80061; 82550; 82553; 82962; 84484; 85025; 85610; 85670; 85730; 92610; 93005; 93306; 93880; 97161; 97165; 99285; A9270; G0378; 90686

== ENCOUNTER 2022-02-03 07:16 | Inpatient (IN) | payer SELFPAY ==
--- NOTE | 2022-02-03 07:49 | Emergency Department Report ---
HPI - General Chief Complaint: GI Bleed Time Seen by Provider: 02/03/22 07:36 - HPI HPI: Room 21 Patient is a 66-year-old male present with a chief complaint of syncope. The patient was reportedly on the toilet this morning when he developed epistaxis. EMS reports patient had a syncopal episode. EMS was called and arrived on scene. EMS reportedly noticed blood in the toilet bowl. Patient currently denies complaints stating he just feels cold. Patient denies pain or shortness of breath. Patient states he feels like his normal self at this time ED Past Medical Hx - Past Medical History Hx Hypertension: Yes Additional medical history: hyperthyroid - Surgical History Past Surgical History?: No - Family History Family history: no significant - Social History Smoking Status: Never Smoker - Medications Home Medications: Home Medications Medication Instructions Recorded Confirmed Last Taken Type Aspirin EC [Halfprin EC] 81 mg PO QDAY #30 tablet. 08/10/20 Unknown Rx AtorvaSTATin [Lipitor] 40 mg PO QHS #30 tablet 08/10/20 Unknown Rx Clopidogrel [Plavix] 75 mg PO QDAY #21 tablet 08/10/20 Unknown Rx ED Review of Systems ROS: Stated complaint: GI BLEED Other details as noted in HPI Constitutional: no symptoms reported Eyes: denies: eye pain ENT: denies: throat pain Respiratory: denies: shortness of breath Cardiovascular: denies: chest pain Endocrine: no symptoms reported Gastrointestinal: denies: abdominal pain Genitourinary: denies: dysuria Musculoskeletal: denies: back pain Neurological: denies: headache Physical Exam - Physical Exam Vital Signs: Vital Signs 02/03/22 07:29 Temperature 97.4 F L Pulse Rate 52 L Respiratory 17 Rate Blood Pressure 166/75 [Left] O2 Sat by Pulse 99 Oximetry Physical Exam: GENERAL: The patient is well-developed well-nourished male lying on stretcher not appearing to be in acute distress. [] HEENT: Normocephalic. Atraumatic. Extraocular motions are intact. Patient has moist mucous membranes. NECK: Supple. Trachea midline CHEST/LUNGS: Clear to auscultation. There is no respiratory distress noted. HEART/CARDIOVASCULAR: Regular. There is no tachycardia. There is no gallop rub or murmur. ABDOMEN: Abdomen is soft, nontender. Patient has normal bowel sounds. There is no abdominal distention. SKIN: There is no rash. There is no edema. There is no diaphoresis. NEURO: The patient is awake, alert, and oriented. The patient is cooperative. The patient has no focal neurologic deficits. The patient has normal speech. GCS 15 MUSCULOSKELETAL: There is no evidence of acute injury. RECTAL: Dark brown stool, guaiac positive ED Course Vital Signs 02/03/22 07:29 Temperature 97.4 F L Pulse Rate 52 L Respiratory 17 Rate Blood Pressure 166/75 [Left] O2 Sat by Pulse 99 Oximetry ED Medical Decision Making - Lab Data Result diagrams: 02/03/22 07:46 02/03/22 07:46 Laboratory Tests 02/03/22 02/03/22 02/03/22 07:46 07:46 07:46 WBC 11.1 H RBC 3.78 Hgb 12.5 Hct 36.8 MCV 97 H MCH 33 H MCHC 34 RDW 14.8 Plt Count 165 Lymph % (Auto) 15.4 [place] % (Auto) 4.2 Eos % (Auto) 0.5 Baso % (Auto) 0.2 Lymph # (Auto) 1.7 [place] # (Auto) 0.5 Eos # (Auto) 0.1 Baso # (Auto) 0.0 Seg Neutrophils % 79.7 H Seg Neutrophils # 8.8 H PT 13.7 INR 0.93 APTT 23.8 L Sodium 139 Potassium 4.7 Chloride 105.8 Carbon Dioxide 22 Anion Gap 16 BUN 29 H Creatinine 1.3 Estimated GFR 55 BUN/Creatinine Ratio 22 Glucose 108 H Calcium 9.0 Total Bilirubin 0.60 AST 39 ALT 29 Alkaline Phosphatase 43 Total Creatine Kinase CK-MB (CK-2) CK-MB (CK-2) Rel Index Troponin T Total Protein 6.7 Albumin 3.9 Albumin/Globulin Ratio 1.4 TSH Free T4 Blood Type Antibody Screen 02/03/22 02/03/22 02/03/22 07:46 07:46 08:04 WBC RBC Hgb Hct MCV MCH MCHC RDW Plt Count Lymph % (Auto) [place] % (Auto) Eos % (Auto) Baso % (Auto) Lymph # (Auto) [place] # (Auto) Eos # (Auto) Baso # (Auto) Seg Neutrophils % Seg Neutrophils # PT INR APTT Sodium Potassium Chloride Carbon Dioxide Anion Gap BUN Creatinine Estimated GFR BUN/Creatinine Ratio Glucose Calcium Total Bilirubin AST ALT Alkaline Phosphatase Total Creatine Kinase 753 H CK-MB (CK-2) 14.9 H CK-MB (CK-2) Rel Index 1.9 Troponin T < 0.010 Total Protein Albumin Albumin/Globulin Ratio TSH 100.000 H Free T4 0.22 L Blood Type A POSITIVE Antibody Screen Negative - EKG Data -: EKG Interpreted by Me EKG shows normal: sinus rhythm Rate: normal - EKG Data When compared to previous EKG there are: no significant change Interpretation: unchanged when compared t (08/09/2020) - Radiology Data Radiology results: report reviewed (CT head, chest x-ray), image reviewed (CT h ead, chest x-ray) [facility] [address] [place] [address] Cat Scan Report Signed Patient: TOBIN WELLS MR#: [id number] : 1955 Acct:[id number] Age/Sex: 66 / M ADM Date: 02/03/22 Loc: ED Attending Dr: Ordering Physician: OLINDA CASANOVA MD Date of Service: 02/03/22 Procedure(s): CT head/brain wo con Accession Number(s): [id number] cc: OLINDA CASANOVA MD CT HEAD WITHOUT CONTRAST INDICATION / CLINICAL INFORMATION: Syncope. TECHNIQUE: All CT scans at this location are performed using CT dose reduction for ALARA by means of automated exposure control. COMPARISON: CT 08/09/2020 and MRI brain 08/10/2020 FINDINGS: HEMORRHAGE: No evidence of intracranial hemorrhage or extra-axial fluid colle ction. EXTRA-AXIAL SPACES: Cortical sulci, sylvian fissures and basilar cisterns have an unremarkable appearance. VENTRICULAR SYSTEM: The third and lateral ventricles are of normal size and con figuration. CEREBRAL PARENCHYMA: A ventricular and deep white matter lucency are noted compatible with microvascular ischemic change. Incidental note is made of bilateral physiological basal ganglia calcifications. No additional areas of abnormal brain parenchymal attenuation are identified. There is no indication of recent infarction. MIDLINE SHIFT OR HERNIATION: There is no mass effect. CEREBELLUM / BRAINSTEM: Brainstem and cerebellum have an unremarkable appearance. MIDLINE STRUCTURES:No abnormalities of the pituitary gland or pineal region are identified. INTRACRANIAL VESSELS:No abnormalities are identified on this noncontrast head CT. ORBITS: visualized portions of the orbits have an unremarkable appearance. SOFT TISSUES of HEAD: No significant abnormality. CALVARIUM: Evaluation of bone windows reveals no abnormalities. PARANASAL SINUSES / MASTOID AIR CELLS: Visualized portions of the paranasal sinuses are free from inflammatory mucosal disease. Mastoid air cells are normally pneumatized. ADDITIONAL FINDINGS: None. IMPRESSION: 1. No acute intracranial abnormality. No significant interval change compared to August 2020 Signer Name: Mic Jackson MD Signed: 02/03/2022 11:21 AM Workstation Name: [id number] Transcribed By: Dictated By: Mic Jackson MD Electronically Authenticated By: Mic Jackson MD Signed Date/Time: 02/03/22 1121 DD/ 1118 TD/TT: [address] [address] XRay Report Signed Patient: TOBIN WELLS MR#: [id number] : 1955 Acct:[id number] Age/Sex: 66 / M ADM Date: 02/03/22 Loc: ED Attending Dr: Ordering Physician: OLINDA CASANOVA MD Date of Service: 02/03/22 Procedure(s): XR chest 1V ap Accession Number(s): [id number] cc: OLINDA CASANOVA MD Fluoro Time In Minutes: CHEST 1 VIEW INDICATION: Syncope. COMPARISON: None. FINDINGS: Support devices: None. Heart: Normal. Lungs/Pleura: No acute pulmonary or pleural findings. IMPRESSION: 1. No acute findings. Signer Name: Santi Tejada MD Signed: 02/03/2022 10:28 AM Workstation Name: [id number] Transcribed By: SW Dictated By: Santi Tejada MD Electronically Authenticated By: Santi Tejada MD Signed Date/Time: 02/03/22 1050 DD/ 1028 TD/TT: - Differential Diagnosis Syncope, symptomatic anemia Critical care attestation.: If time is entered above; I have spent that time in minutes in the direct care of this critically ill patient, excluding procedure time. ED Disposition Clinical Impression: Syncope, Rectal bleeding, Hypothyroidism Disposition: 09 ADMITTED INPATIENT Is pt being admited?: Yes Does the pt Need Aspirin: No Condition: Fair Instructions: Syncope (ED) Forms: Accompanied Note Time of Disposition: 13:12 (Care transferred to hospitalist (Dr. George))
[2022-02-03 08:33] LABS: INR 0.93 (0.87-1.13); Partial Thromboplastin Time 23.8 Sec. (24.2-36.6)
[2022-02-03 08:44] LABS: Creatine Kinase MB 14.9 ng/mL (0.0-4.0)
[2022-02-03 08:47] LABS: Albumin 3.9 g/dL (3.9-5)
[2022-02-03 08:54] LABS: Basophils % (Auto) 0.2 % (0.0-1.8); Eosinophils % (Auto) 0.5 % (0.0-4.3); Free T4 (Free Thyroxine) 0.22 ng/dL (0.76-1.46); Hematocrit 36.8 % (35.5-45.6); Hemoglobin 12.5 gm/dl (11.8-15.2); Lymphocytes % (Auto) 15.4 % (13.4-35.0); Mean Corpuscular HGB Conc 34 % (32-34); Mean Corpuscular Volume 97 fl (84-94); Monocytes % (Auto) 4.2 % (0.0-7.3); Platelet Count 165 K/mm3 (140-440); Red Blood Count 3.78 M/mm3 (3.65-5.03); Red Cell Distribution Width 14.8 % (13.2-15.2)
[2022-02-03 08:55] LABS: Eosinophils # (Auto) 0.1 K/mm3 (0.0-0.4); Lymphocytes # (Auto) 1.7 K/mm3 (1.2-5.4); Monocytes # (Auto) 0.5 K/mm3 (0.0-0.8)
--- NOTE | 2022-02-03 10:51 | XRay Report ---
CHEST 1 VIEW INDICATION: Syncope. COMPARISON: None. FINDINGS: Support devices: None. Heart: Normal. Lungs/Pleura: No acute pulmonary or pleural findings. IMPRESSION: 1. No acute findings. Signer Name: Santi Tejada MD Signed: 02/03/2022 10:28 AM Workstation Name: [id number]
--- NOTE | 2022-02-03 11:25 | Cat Scan Report ---
CT HEAD WITHOUT CONTRAST INDICATION / CLINICAL INFORMATION: Syncope. TECHNIQUE: All CT scans at this location are performed using CT dose reduction for ALARA by means of automated e xposure control. COMPARISON: CT 08/09/2020 and MRI brain 08/10/2020 FINDINGS: HEMORRHAGE: No evidence of intracranial hemorrhage or extra-axial fluid collection. EXTRA-AXIAL SPACES: Cortical sulci, sylvian fissures and basilar cisterns have an unremarkable appear ance. VENTRICULAR SYSTEM: The third and lateral ventricles are of normal size and configuration. CEREBRAL PARENCHYMA: A ventricular and deep white matter lucency are noted compatible with microvascu lar ischemic change. Incidental note is made of bilateral physiological basal ganglia calcifications. No additional areas of abnormal brain parenchymal attenuation are identified. There is no indication of recent infarction. MIDLINE SHIFT OR HERNIATION: There is no mass effect. CEREBELLUM / BRAINSTEM: Brainstem and cerebellum have an unremarkable appearance. MIDLINE STRUCTURES:No abnormalities of the pituitary gland or pineal region are identified. INTRACRANIAL VESSELS:No abnormalities are identified on this noncontrast head CT. ORBITS: visualized portions of the orbits have an unremarkable appearance. SOFT TISSUES of HEAD: No significant abnormality. CALVARIUM: Evaluation of bone windows reveals no abnormalities. PARANASAL SINUSES / MASTOID AIR CELLS: Visualized portions of the paranasal sinuses are free from inf lammatory mucosal disease. Mastoid air cells are normally pneumatized. ADDITIONAL FINDINGS: None. IMPRESSION: 1. No acute intracranial abnormality. No significant interval change compared to August 2020 Signer Name: Mic Jackson MD Signed: 02/03/2022 11:21 AM Workstation Name: [id number]
--- NOTE | 2022-02-03 13:27 | Electrocardiograph Report ---
[facility] Test Date: 2022-02-03 Test Time: 07:43:39 Pat Name: TOBIN WELLS Department: Room: Gender: M Gopherman: BEVERLY : 1955 Requested By: OLINDA CASANOVA Order Number: [id number] Reading MD: Christopher Julian Measurements Intervals [place] Rate: 61 P: 35 DE: 188 QRS: 30 QRSD: 103 T: 52 QT: 444 QTc: 446 Interpretive Statements Sinus rhythm Probable left ventricular hypertrophy ST elevation, consider anterior injury,can be normal variant. No previous ECG available for comparison Correlateclinically. Electronically Signed On 02-03-2022 13:27:23 EDT by Christopher Julian
--- NOTE | 2022-02-03 17:41 | History and Physical Report ---
History of Present Illness Date of examination: 02/03/22 Date of admission: 02/03/2022 Chief complaint: Lower GI bleedx 1 episode in the morning History of present illness: Patient nearlyWith history of hypothyroidism--initiated hypothyroidism but received radioactive iodine for treatment of thyrotoxicosis brought in because of bright red blood per rectum in the morning and passed out. Patient was brought in by EMS. History will be taken from a relative who speaks Dutch. Patient feels that is normal at this point. No lightheadedness. No altered sensorium. - Past Medical History Hx Hypertension: Yes hyperthyroidism--- had radioactive iodine resulting in hypothyroidism Hypothyroidism - Surgical History Past Surgical History?: No - Family History Family history: no significant - Social History Smoking Status: Never Smoker - Medications Home Medications: Home Medications Medication Instructions Recorded Confirmed Last Taken Type Aspirin EC [Halfprin EC] 81 mg PO QDAY #30 tablet. 08/10/20 Unknown Rx AtorvaSTATin [Lipitor] 40 mg PO QHS #30 tablet 08/10/20 Unknown Rx Clopidogrel [Plavix] 75 mg PO QDAY #21 tablet 08/10/20 Unknown Rx Review of Systems ROS: Stated complaint: GI BLEED Other details as noted in HPI Constitutional: no symptoms reported Eyes: denies: eye pain ENT: denies: throat pain Respiratory: denies: shortness of breath Cardiovascular: denies: chest pain Endocrine: no symptoms reported Gastrointestinal: denies: abdominal pain Genitourinary: denies: dysuria Musculoskeletal: denies: back pain Neurological: denies: headache Medications and Allergies Allergies Allergy/AdvReac Type Severity Reaction Status Date / Time No Known Allergies Allergy Verified 02/03/22 07:31 Home Medications Medication Instructions Recorded Confirmed Last Taken Type Aspirin EC [Halfprin EC] 81 mg PO QDAY #30 tablet. 08/10/20 02/04/22 Unknown Rx AtorvaSTATin [Lipitor] 40 mg PO QHS #30 tablet 08/10/20 02/04/22 Unknown Rx Clopidogrel [Plavix] 75 mg PO QDAY #21 tablet 08/10/20 02/04/22 Unknown Rx Exam - Constitutional Vitals: Temp Pulse Resp BP Pulse Ox 97.4 F L 61 16 139/76 100 02/03/22 07:56 02/03/22 17:30 02/03/22 17:30 02/03/22 17:30 02/03/22 17:30 General appearance: Present: no acute distress, well-nourished - EENT Eyes: Present: PERRL ENT: hearing intact, clear oral mucosa - Neck Neck: Present: supple, normal ROM - Respiratory Respiratory effort: normal Respiratory: bilateral: CTA - Cardiovascular Rhythm: regular Heart Sounds: Present: S1 & S2. Absent: rub, click - Extremities Extremities: pulses symmetrical, No edema Peripheral Pulses: within normal limits - Abdominal General gastrointestinal: Present: soft, non-tender, non-distended, normal bowel sounds Male genitourinary: Present: normal - Rectal Rectal Exam: other (BRCA positive) - Integumentary Integumentary: Present: clear, warm, dry - Musculoskeletal Musculoskeletal: gait normal, strength equal bilaterally - Psychiatric Psychiatric: appropriate mood/affect, intact judgment & insight - Neurologic Neurologic: CNII-XII intact, moves all extremities HEART Score - HEART Score Troponin: Troponin T < 0.010 ng/mL (0.00-0.029) 02/03/22 08:04 Results - Labs CBC & Chem 7: 02/04/22 05:22 02/04/22 05:22 Labs: Laboratory Last Values WBC 11.1 K/mm3 (4.5-11.0) H 02/03/22 07:46 RBC 3.78 M/mm3 (3.65-5.03) 02/03/22 07:46 Hgb 12.5 gm/dl (11.8-15.2) 02/03/22 07:46 Hct 36.8 % (35.5-45.6) 02/03/22 07:46 MCV 97 fl (84-94) H 02/03/22 07:46 MCH 33 pg (28-32) H 02/03/22 07:46 MCHC 34 % (32-34) 02/03/22 07:46 RDW 14.8 % (13.2-15.2) 02/03/22 07:46 Plt Count 165 K/mm3 (140-440) 02/03/22 07:46 Lymph % (Auto) 15.4 % (13.4-35.0) 02/03/22 07:46 [place] % (Auto) 4.2 % (0.0-7.3) 02/03/22 07:46 Eos % (Auto) 0.5 % (0.0-4.3) 02/03/22 07:46 Baso % (Auto) 0.2 % (0.0-1.8) 02/03/22 07:46 Lymph # (Auto) 1.7 K/mm3 (1.2-5.4) 02/03/22 07:46 [place] # (Auto) 0.5 K/mm3 (0.0-0.8) 02/03/22 07:46 Eos # (Auto) 0.1 K/mm3 (0.0-0.4) 02/03/22 07:46 Baso # (Auto) 0.0 K/mm3 (0.0-0.1) 02/03/22 07:46 Seg Neutrophils % 79.7 % (40.0-70.0) H 02/03/22 07:46 Seg Neutrophils # 8.8 K/mm3 (1.8-7.7) H 02/03/22 07:46 PT 13.7 Sec. (12.2-14.9) 02/03/22 07:46 INR 0.93 (0.87-1.13) 02/03/22 07:46 APTT 23.8 Sec. (24.2-36.6) L 02/03/22 07:46 Sodium 139 mmol/L (137-145) 02/03/22 07:46 Potassium 4.7 mmol/L (3.6-5.0) 02/03/22 07:46 Chloride 105.8 mmol/L (98-107) 02/03/22 07:46 Carbon Dioxide 22 mmol/L (22-30) 02/03/22 07:46 Anion Gap 16 mmol/L 02/03/22 07:46 BUN 29 mg/dL (9-20) H 02/03/22 07:46 Creatinine 1.3 mg/dL (0.8-1.3) 02/03/22 07:46 Estimated GFR 55 ml/min 02/03/22 07:46 BUN/Creatinine Ratio 22 % 02/03/22 07:46 Glucose 108 mg/dL (75-100) H 02/03/22 07:46 Calcium 9.0 mg/dL (8.4-10.2) 02/03/22 07:46 Total Bilirubin 0.60 mg/dL (0.1-1.2) 02/03/22 07:46 AST 39 units/L (5-40) 02/03/22 07:46 ALT 29 units/L (7-56) 02/03/22 07:46 Alkaline Phosphatase 43 units/L (35-129) 02/03/22 07:46 Total Creatine Kinase 753 units/L (55-170) H 02/03/22 08:04 CK-MB (CK-2) 14.9 ng/mL (0.0-4.0) H 02/03/22 08:04 CK-MB (CK-2) Rel Index 1.9 (0-4) 02/03/22 08:04 Troponin T < 0.010 ng/mL (0.00-0.029) 02/03/22 08:04 Total Protein 6.7 g/dL (6.3-8.2) 02/03/22 07:46 Albumin 3.9 g/dL (3.9-5) 02/03/22 07:46 Albumin/Globulin Ratio 1.4 % 02/03/22 07:46 TSH 100.000 mlU/mL (0.270-4.200) H 02/03/22 07:46 Free T4 0.22 ng/dL (0.76-1.46) L 02/03/22 07:46 Blood Type A POSITIVE 02/03/22 07:46 Antibody Screen Negative 02/03/22 07:46 Short CBC 02/03/22 02/03/22 02/04/22 Range/Units 07:46 18:19 05:22 WBC 11.1 H 6.2 (4.5-11.0) K/mm3 Hgb 12.5 10.7 L 10.5 L (11.8-15.2) gm/dl Hct 36.8 32.5 L 31.7 L (35.5-45.6) % Plt Count 165 150 (140-440) K/mm3 BMP 02/03/22 02/04/22 07:46 05:22 Sodium 139 140 Potassium 4.7 3.7 D Chloride 105.8 108.0 H Carbon Dioxide 22 23 BUN 29 H 34 H Creatinine 1.3 1.0 Glucose 108 H 81 Calcium 9.0 8.3 L Cardiac Enzymes 02/03/22 Range/Units 08:04 Total Creatine Kinase 753 H (55-170) units/L CK-MB (CK-2) 14.9 H (0.0-4.0) ng/mL Troponin T < 0.010 (0.00-0.029) ng/mL Liver Function 02/03/22 02/04/22 Range/Units 07:46 05:22 Total Bilirubin 0.60 0.50 (0.1-1.2) mg/dL AST 39 23 (5-40) units/L ALT 29 22 (7-56) units/L Alkaline Phosphatase 43 37 (35-129) units/L Albumin 3.9 3.5 L (3.9-5) g/dL Microbiology: Microbiology 02/03/22 Unknown Stool Stool Occult Blood (ABRAHAM) - Final - Imaging and Cardiology EKG: report reviewed (Sinus rhythm, LVH, heart rate of 61) Imaging and Cardiology: Head CT No acute intracranial abnormality. Chest x-ray No acute abnormality Assessment and Plan Advance Directives: Yes (Full code) VTE prophylaxis?: Mechanical Plan of care discussed with patient/family: Yes - Patient Problems (1) Lower GI bleed Current Visit: Yes Status: Acute Plan to address problem: Possible diverticulosis Discussed with GI Possible endoscopy Saturday or Saturday (2) Syncope Current Visit: Yes Status: Acute Plan to address problem: Secondary to orthostatic hypotension No further work-up (3) Hypothyroidism Current Visit: Yes Status: Chronic Qualifiers: Hypothyroidism type: postablative Qualified Code(s): E89.0 - Postprocedural hypothyroidism Plan to address problem: IV Synthroid for now To be changed to oral Synthroid when patient is able to take orally (4) DVT prophylaxis Current Visit: No Status: Acute Plan to address problem: On SCDs and GI prophylaxis (5) Advance care planning Current Visit: Yes Status: Acute Plan to address problem: Disease education conducted, care plan discussed, diagnosis discussed, prognosis discussed. Patient is full code. Patient acknowledges understanding and agreement with care plan. +30 minutes.
[2022-02-03] MEDS ORDERED: ONDANSETRON 4 MG/2 ML INJ IV PRN (17:44)
[2022-02-03] MEDS ORDERED: METOCLOPRAMIDE 10 MG/2 ML INJ IV PRN (17:44)
[2022-02-03] MEDS ORDERED: MORPHINE 2 MG/1 ML INJ IV PRN (17:44)
[2022-02-03] MEDS ORDERED: ACETAMINOPHEN 325 MG TAB PO PRN (17:44)
[2022-02-03] MEDS ORDERED: SODIUM CHLORIDE 0.9% 1000 ML 1,000 ML IV SCH (17:45)
[2022-02-03 18:46] LABS: Hematocrit 32.5 % (35.5-45.6); Hemoglobin 10.7 gm/dl (11.8-15.2)
[2022-02-03] MEDS: PANTOPRAZOLE 40 MG INJ IV SCH (22:24)
[2022-02-04 06:00] LABS: Basophils % (Auto) 0.7 % (0.0-1.8); Eosinophils # (Auto) 0.1 K/mm3 (0.0-0.4); Eosinophils % (Auto) 1.3 % (0.0-4.3); Hematocrit 31.7 % (35.5-45.6); Hemoglobin 10.5 gm/dl (11.8-15.2); Lymphocytes # (Auto) 1.6 K/mm3 (1.2-5.4); Lymphocytes % (Auto) 25.6 % (13.4-35.0); Mean Corpuscular HGB Conc 33 % (32-34); Mean Corpuscular Volume 97 fl (84-94); Monocytes # (Auto) 0.5 K/mm3 (0.0-0.8); Monocytes % (Auto) 7.3 % (0.0-7.3); Platelet Count 150 K/mm3 (140-440); Red Blood Count 3.26 M/mm3 (3.65-5.03); Red Cell Distribution Width 14.7 % (13.2-15.2)
[2022-02-04 06:20] LABS: Alanine Aminotransferase 22 units/L (7-56); Albumin 3.5 g/dL (3.9-5); BUN/Creatinine Ratio 34; Blood Urea Nitrogen 34 mg/dL (9-20); Calcium 8.3 mg/dL (8.4-10.2); Hemolysis Index 3
[2022-02-04] MEDS: PANTOPRAZOLE 40 MG INJ IV SCH ×2 (09:14→23:04)
[2022-02-04] MEDS: LEVOTHYROXINE 100 MCG INJ IV SCH (09:15)
--- NOTE | 2022-02-04 09:35 | Gastroenterology Consultation ---
History of Present Illness - Reason for Consult Consult date: 02/04/22 GI Bleed Requesting physician: THAO BIANCHI - History of Present Illness History is obtained from patient as well as his daughter who was present at bedside and helped translate Saturday morning patient went to the bathroom and had bleeding from his right nostril as well as bleeding from his rectum. Patient does not remember the episode history obtained from family Patient reports no more bleeding since then Reports he is hungry otherwise no abdominal pain. Does report fatigue and weakness significant hypothyroidism noted on labs Obtained/updated/reviewed patient's current medications - Past Medical History Hx Hypertension: Yes hyperthyroidism--- had radioactive iodine resulting in hypothyroidism Hypothyroidism - Surgical History Past Surgical History?: No - Family History Family history: no significant - Social History Smoking Status: Never Smoker Medications and Allergies Allergies Allergy/AdvReac Type Severity Reaction Status Date / Time No Known Allergies Allergy Verified 02/03/22 07:31 Home Medications Medication Instructions Recorded Confirmed Last Taken Type Aspirin EC [Halfprin EC] 81 mg PO QDAY #30 tablet. 08/10/20 02/04/22 Unknown Rx AtorvaSTATin [Lipitor] 40 mg PO QHS #30 tablet 08/10/20 02/04/22 Unknown Rx Clopidogrel [Plavix] 75 mg PO QDAY #21 tablet 08/10/20 02/04/22 Unknown Rx Active Meds: Active Medications Acetaminophen (Acetaminophen 325 Mg Tab) 650 mg PO Q4H PRN PRN Reason: Pain MILD(1-3)/Fever >100.5/CRENSHAW Sodium Chloride (Nacl 0.9% 1000 Ml) 1,000 mls @ 75 mls/hr IV DIRECT [facility] Last Admin: 02/04/22 09:12 Dose: 75 mls/hr Levothyroxine Sodium (Levothyroxine 100 Mcg Inj) 100 mcg IV DAILY@0600 [facility] Last Admin: 02/04/22 09:15 Dose: 100 mcg Metoclopramide HCl (Metoclopramide 10 Mg/2 Ml Inj) 10 mg IV Q6H PRN PRN Reason: Nausea And Vomiting Morphine Sulfate (Morphine 2 Mg/1 Ml Inj) 2 mg IV Q4H PRN PRN Reason: Pain, Moderate (4-6) Ondansetron HCl (Ondansetron 4 Mg/2 Ml Inj) 4 mg IV Q8H PRN PRN Reason: Nausea And Vomiting Pantoprazole Sodium (Pantoprazole 40 Mg Inj) 40 mg IV BID [facility] Last Admin: 02/04/22 09:14 Dose: 40 mg Sodium Chloride (Sodium Chloride 0.9% 10 Ml Flush Syringe) 10 ml IV BID [facility] Last Admin: 02/04/22 09:14 Dose: 10 ml Sodium Chloride (Sodium Chloride 0.9% 10 Ml Flush Syringe) 10 ml IV PRN PRN PRN Reason: LINE FLUSH Review of Systems - Review of Systems All systems: negative (10 Systems reviewed and negative except as mentioned above in the history of present illness with addition of fatigue hunger feeling cold) Exam - Constitutional Vital Signs: Temp Pulse Resp BP Pulse Ox 98.2 F 54 L 18 169/85 99 02/04/22 04:22 02/04/22 04:22 02/04/22 04:22 02/04/22 04:22 02/04/22 04:22 General appearance: no acute distress - EENT Eyes: EOM intact ENT: hearing intact - Neck Neck: supple - Respiratory Respiratory effort: normal - Cardiovascular Rhythm: regular - Gastrointestinal General gastrointestinal: Present: soft, other (Mild epigastric tenderness to palpation otherwise normal exam) - Integumentary Integumentary: Present: dry - Musculoskeletal Musculoskeletal: normal - Neurologic Neurological: alert and oriented x3 - Psychiatric Psychiatric: appropriate mood/affect - Labs CBC & Chem 7: 02/04/22 05:22 02/04/22 05:22 Lab Results: Laboratory Results - last 24 hr 02/03/22 02/04/22 02/04/22 18:19 05:22 05:22 WBC 6.2 RBC 3.26 L Hgb 10.7 L 10.5 L Hct 32.5 L 31.7 L MCV 97 H MCH 32 MCHC 33 RDW 14.7 Plt Count 150 Lymph % (Auto) 25.6 [place] % (Auto) 7.3 Eos % (Auto) 1.3 Baso % (Auto) 0.7 Lymph # (Auto) 1.6 [place] # (Auto) 0.5 Eos # (Auto) 0.1 Baso # (Auto) 0.0 Seg Neutrophils % 65.1 Seg Neutrophils # 4.1 Sodium 140 Potassium 3.7 D Chloride 108.0 H Carbon Dioxide 23 Anion Gap 13 BUN 34 H Creatinine 1.0 Estimated GFR > 60 BUN/Creatinine Ratio 34 Glucose 81 Calcium 8.3 L Total Bilirubin 0.50 AST 23 ALT 22 Alkaline Phosphatase 37 Total Protein 5.6 L Albumin 3.5 L Albumin/Globulin Ratio 1.7 Assessment and Plan No more bleeding other than the single episode that the patient had. Additionally his hemoglobin has stabilized. Additionally he has significant hypothyroidism Therefore from GI standpoint patient without any more active bleeding and has significant endocrine pathology that would benefit from correction prior to endoscopic evaluation the risks of pursuing inpatient endoscopy outweigh the benefits We will continue to follow in the meantime to ensure no more clinical bleeding I am starting the patient on diet - Patient Problems (1) Hypothyroidism Current Visit: Yes Status: Acute Qualifiers: (2) Rectal bleeding Current Visit: Yes Status: Acute (3) Syncope Current Visit: Yes Status: Acute
[2022-02-04 19:06] LABS: Hematocrit 33.9 % (35.5-45.6); Hemoglobin 11.1 gm/dl (11.8-15.2)
--- NOTE | 2022-02-04 19:13 | Progress Note ---
Assessment and Plan Assessment and plan: Advance Directives: Yes (Full code) VTE prophylaxis?: Mechanical Plan of care discussed with patient/family: Yes --Lower GI bleeding No new episodes of bleeding H&H stable, hemodynamically stable GI evaluated the patient In view of patient's severe hypothyroidism As patient is hemodynamically stable since\ Symptoms resolved, no new episodes of bleeding GI cleared for discharge Follow-up as outpatient for further evaluation and management And thyroid function improves -- Syncope; autonomic dysfunction Fall precautions, probably due to GI bleeding Closely monitor, supportive care --Severe hypothyroidism; Continue IV Synthroid , transition to oral tomorrow To be changed to oral Synthroid when patient is able to take orally Continue Synthroid, TSH trending down, patient needs to see private mechanical assembler Upon discharge, strongly advised to comply with medications diet and follow-up visits --DVT prophylaxis On SCDs and GI prophylaxis --Full CODE STATUS; -Advance care planning Disease education conducted, care plan discussed, diagnosis discussed, prognosis discussed. Patient is full code. Patient acknowledges understanding and agreement with care plan. +30 minutes. Possible discharge home tomorrow if stable Plan of care reviewed with the patient and his nurse Marketing Planning Manager recommendations noted and appreciated DC planning per case management Possible discharge tomorrow if stable Disposition closely monitor and observe overnight discharge tomorrow if stable History Interval history: I have seen and examined the patient at the bedside Patient's chart and medications reviewed Admitted with GI bleeding, No new episodes of bleeding H&H is stable , Vital signs noted Patient also has severe hypothyroidism Hospitalist Physical - Constitutional Vitals: Temp Pulse Resp BP Pulse Ox 98.1 F 59 L 18 154/80 98 02/04/22 16:14 02/04/22 16:14 02/04/22 16:14 02/04/22 16:14 02/04/22 16:14 General appearance: Present: no acute distress, well-nourished - EENT Eyes: Present: PERRL, EOM intact - Neck Neck: Present: supple, normal ROM - Respiratory Respiratory effort: normal Respiratory: bilateral: diminished, negative: rales, rhonchi, wheezing - Cardiovascular Rhythm: regular Heart Sounds: Present: S1 & S2 - Extremities Extremities: no ischemia, No edema - Abdominal General gastrointestinal: soft, non-tender, non-distended, normal bowel sounds - Integumentary Integumentary: Present: clear, warm - Psychiatric Psychiatric: appropriate mood/affect, cooperative - Neurologic Neurologic: moves all extremities HEART Score - HEART Score Troponin: Troponin T < 0.010 ng/mL (0.00-0.029) 02/03/22 08:04 Results - Labs CBC & Chem 7: 02/04/22 18:33 02/04/22 05:22 Labs: Laboratory Last Values WBC 6.2 K/mm3 (4.5-11.0) 02/04/22 05:22 RBC 3.26 M/mm3 (3.65-5.03) L 02/04/22 05:22 Hgb 11.1 gm/dl (11.8-15.2) L 02/04/22 18:33 Hct 33.9 % (35.5-45.6) L 02/04/22 18:33 MCV 97 fl (84-94) H 02/04/22 05:22 MCH 32 pg (28-32) 02/04/22 05:22 MCHC 33 % (32-34) 02/04/22 05:22 RDW 14.7 % (13.2-15.2) 02/04/22 05:22 Plt Count 150 K/mm3 (140-440) 02/04/22 05:22 Lymph % (Auto) 25.6 % (13.4-35.0) 02/04/22 05:22 [place] % (Auto) 7.3 % (0.0-7.3) 02/04/22 05:22 Eos % (Auto) 1.3 % (0.0-4.3) 02/04/22 05:22 Baso % (Auto) 0.7 % (0.0-1.8) 02/04/22 05:22 Lymph # (Auto) 1.6 K/mm3 (1.2-5.4) 02/04/22 05:22 [place] # (Auto) 0.5 K/mm3 (0.0-0.8) 02/04/22 05:22 Eos # (Auto) 0.1 K/mm3 (0.0-0.4) 02/04/22 05:22 Baso # (Auto) 0.0 K/mm3 (0.0-0.1) 02/04/22 05:22 Seg Neutrophils % 65.1 % (40.0-70.0) 02/04/22 05:22 Seg Neutrophils # 4.1 K/mm3 (1.8-7.7) 02/04/22 05:22 PT 13.7 Sec. (12.2-14.9) 02/03/22 07:46 INR 0.93 (0.87-1.13) 02/03/22 07:46 APTT 23.8 Sec. (24.2-36.6) L 02/03/22 07:46 Sodium 140 mmol/L (137-145) 02/04/22 05:22 Potassium 3.7 mmol/L (3.6-5.0) D 02/04/22 05:22 Chloride 108.0 mmol/L (98-107) H 02/04/22 05:22 Carbon Dioxide 23 mmol/L (22-30) 02/04/22 05:22 Anion Gap 13 mmol/L 02/04/22 05:22 BUN 34 mg/dL (9-20) H 02/04/22 05:22 Creatinine 1.0 mg/dL (0.8-1.3) 02/04/22 05:22 Estimated GFR > 60 ml/min 02/04/22 05:22 BUN/Creatinine Ratio 34 % 02/04/22 05:22 Glucose 81 mg/dL (75-100) 02/04/22 05:22 Calcium 8.3 mg/dL (8.4-10.2) L 02/04/22 05:22 Total Bilirubin 0.50 mg/dL (0.1-1.2) 02/04/22 05:22 AST 23 units/L (5-40) 02/04/22 05:22 ALT 22 units/L (7-56) 02/04/22 05:22 Alkaline Phosphatase 37 units/L (35-129) 02/04/22 05:22 Total Creatine Kinase 753 units/L (55-170) H 02/03/22 08:04 CK-MB (CK-2) 14.9 ng/mL (0.0-4.0) H 02/03/22 08:04 CK-MB (CK-2) Rel Index 1.9 (0-4) 02/03/22 08:04 Troponin T < 0.010 ng/mL (0.00-0.029) 02/03/22 08:04 Total Protein 5.6 g/dL (6.3-8.2) L 02/04/22 05:22 Albumin 3.5 g/dL (3.9-5) L 02/04/22 05:22 Albumin/Globulin Ratio 1.7 % 02/04/22 05:22 TSH 85.290 mlU/mL (0.270-4.200) H 02/04/22 14:54 Free T4 0.22 ng/dL (0.76-1.46) L 02/03/22 07:46 Blood Type A POSITIVE 02/03/22 07:46 Antibody Screen Negative 02/03/22 07:46 Martinez/IV: Voiding Method Toilet Active Medications - Current Medications Current Medications: Generic Name Dose Route Start Last Admin Trade Name Freq PRN Reason Stop Dose Admin Acetaminophen 650 mg 02/03/22 17:44 Acetaminophen 325 Mg Tab PO Q4H PRN Pain MILD(1-3)/Fever >100.5/CRENSHAW Sodium Chloride 1,000 mls @ 75 mls/hr 02/03/22 17:45 02/04/22 09:12 Nacl 0.9% 1000 Ml IV 75 mls/hr DIRECT PASCUAL Administration Levothyroxine Sodium 100 mcg 02/04/22 10:00 02/04/22 09:15 Levothyroxine 100 Mcg Inj IV 100 mcg DAILY@0600 PASCUAL Administration Metoclopramide HCl 10 mg 02/03/22 17:44 Metoclopramide 10 Mg/2 Ml Inj IV Q6H PRN Nausea And Vomiting Morphine Sulfate 2 mg 02/03/22 17:44 Morphine 2 Mg/1 Ml Inj IV Q4H PRN Pain, Moderate (4-6) Ondansetron HCl 4 mg 02/03/22 17:44 Ondansetron 4 Mg/2 Ml Inj IV Q8H PRN Nausea And Vomiting Pantoprazole Sodium 40 mg 02/03/22 22:00 02/04/22 09:14 Pantoprazole 40 Mg Inj IV 40 mg BID PASCUAL Administration Sodium Chloride 10 ml 02/03/22 22:00 02/04/22 09:14 Sodium Chloride 0.9% 10 Ml Flush Syringe IV 10 ml BID PASCUAL Administration Sodium Chloride 10 ml 02/03/22 17:44 Sodium Chloride 0.9% 10 Ml Flush Syringe IV PRN PRN LINE FLUSH
--- NOTE | 2022-02-05 01:45 | Progress Note ---
Assessment and Plan Assessment and plan: Advance Directives: Yes (Full code) VTE prophylaxis?: Mechanical Plan of care discussed with patient/family: Yes --Lower GI bleeding No new episodes of bleeding H&H stable, hemodynamically stable GI evaluated the patient In view of patient's severe hypothyroidism As patient is hemodynamically stable since\ Symptoms resolved, no new episodes of bleeding GI cleared for discharge Follow-up as outpatient for further evaluation and management And thyroid function improves -- Syncope; autonomic dysfunction Fall precautions, probably due to GI bleeding Closely monitor, supportive care --Severe hypothyroidism; Continue IV Synthroid , transition to oral tomorrow To be changed to oral Synthroid when patient is able to take orally Continue Synthroid, TSH trending down, patient needs to see private transformation analyst Upon discharge, strongly advised to comply with medications diet and follow-up visits --DVT prophylaxis On SCDs and GI prophylaxis --Full CODE STATUS; -Advance care planning Disease education conducted, care plan discussed, diagnosis discussed, prognosis discussed. Patient is full code. Patient acknowledges understanding and agreement with care plan. +30 minutes. Possible discharge home tomorrow if stable Plan of care reviewed with the patient and his nurse Bridge Teacher recommendations noted and appreciated DC planning per case management Possible discharge tomorrow if stable Disposition closely monitor and observe overnight discharge tomorrow if stable Hospitalist Physical - Constitutional Vitals: Temp Pulse Resp BP Pulse Ox 97.8 F 57 L 18 144/76 100 02/04/22 22:00 02/04/22 22:00 02/04/22 22:00 02/04/22 22:00 02/04/22 22:00 General appearance: Present: no acute distress, well-nourished HEART Score - HEART Score Troponin: Troponin T < 0.010 ng/mL (0.00-0.029) 02/03/22 08:04 Results - Labs CBC & Chem 7: 02/04/22 18:33 02/04/22 05:22 Labs: Laboratory Last Values WBC 6.2 K/mm3 (4.5-11.0) 02/04/22 05:22 RBC 3.26 M/mm3 (3.65-5.03) L 02/04/22 05:22 Hgb 11.1 gm/dl (11.8-15.2) L 02/04/22 18:33 Hct 33.9 % (35.5-45.6) L 02/04/22 18:33 MCV 97 fl (84-94) H 02/04/22 05:22 MCH 32 pg (28-32) 02/04/22 05:22 MCHC 33 % (32-34) 02/04/22 05:22 RDW 14.7 % (13.2-15.2) 02/04/22 05:22 Plt Count 150 K/mm3 (140-440) 02/04/22 05:22 Lymph % (Auto) 25.6 % (13.4-35.0) 02/04/22 05:22 [place] % (Auto) 7.3 % (0.0-7.3) 02/04/22 05:22 Eos % (Auto) 1.3 % (0.0-4.3) 02/04/22 05:22 Baso % (Auto) 0.7 % (0.0-1.8) 02/04/22 05:22 Lymph # (Auto) 1.6 K/mm3 (1.2-5.4) 02/04/22 05:22 [place] # (Auto) 0.5 K/mm3 (0.0-0.8) 02/04/22 05:22 Eos # (Auto) 0.1 K/mm3 (0.0-0.4) 02/04/22 05:22 Baso # (Auto) 0.0 K/mm3 (0.0-0.1) 02/04/22 05:22 Seg Neutrophils % 65.1 % (40.0-70.0) 02/04/22 05:22 Seg Neutrophils # 4.1 K/mm3 (1.8-7.7) 02/04/22 05:22 PT 13.7 Sec. (12.2-14.9) 02/03/22 07:46 INR 0.93 (0.87-1.13) 02/03/22 07:46 APTT 23.8 Sec. (24.2-36.6) L 02/03/22 07:46 Sodium 140 mmol/L (137-145) 02/04/22 05:22 Potassium 3.7 mmol/L (3.6-5.0) D 02/04/22 05:22 Chloride 108.0 mmol/L (98-107) H 02/04/22 05:22 Carbon Dioxide 23 mmol/L (22-30) 02/04/22 05:22 Anion Gap 13 mmol/L 02/04/22 05:22 BUN 34 mg/dL (9-20) H 02/04/22 05:22 Creatinine 1.0 mg/dL (0.8-1.3) 02/04/22 05:22 Estimated GFR > 60 ml/min 02/04/22 05:22 BUN/Creatinine Ratio 34 % 02/04/22 05:22 Glucose 81 mg/dL (75-100) 02/04/22 05:22 Calcium 8.3 mg/dL (8.4-10.2) L 02/04/22 05:22 Total Bilirubin 0.50 mg/dL (0.1-1.2) 02/04/22 05:22 AST 23 units/L (5-40) 02/04/22 05:22 ALT 22 units/L (7-56) 02/04/22 05:22 Alkaline Phosphatase 37 units/L (35-129) 02/04/22 05:22 Total Creatine Kinase 753 units/L (55-170) H 02/03/22 08:04 CK-MB (CK-2) 14.9 ng/mL (0.0-4.0) H 02/03/22 08:04 CK-MB (CK-2) Rel Index 1.9 (0-4) 02/03/22 08:04 Troponin T < 0.010 ng/mL (0.00-0.029) 02/03/22 08:04 Total Protein 5.6 g/dL (6.3-8.2) L 02/04/22 05:22 Albumin 3.5 g/dL (3.9-5) L 02/04/22 05:22 Albumin/Globulin Ratio 1.7 % 02/04/22 05:22 TSH 85.290 mlU/mL (0.270-4.200) H 02/04/22 14:54 Free T4 0.22 ng/dL (0.76-1.46) L 02/03/22 07:46 Blood Type A POSITIVE 02/03/22 07:46 Antibody Screen Negative 02/03/22 07:46 Martinez/IV: Voiding Method Toilet Active Medications - Current Medications Current Medications: Generic Name Dose Route Start Last Admin Trade Name Freq PRN Reason Stop Dose Admin Acetaminophen 650 mg 02/03/22 17:44 Acetaminophen 325 Mg Tab PO Q4H PRN Pain MILD(1-3)/Fever >100.5/CRENSHAW Levothyroxine Sodium 100 mcg 02/04/22 10:00 02/04/22 09:15 Levothyroxine 100 Mcg Inj IV 100 mcg DAILY@0600 PASCUAL Administration Metoclopramide HCl 10 mg 02/03/22 17:44 Metoclopramide 10 Mg/2 Ml Inj IV Q6H PRN Nausea And Vomiting Morphine Sulfate 2 mg 02/03/22 17:44 Morphine 2 Mg/1 Ml Inj IV Q4H PRN Pain, Moderate (4-6) Ondansetron HCl 4 mg 02/03/22 17:44 Ondansetron 4 Mg/2 Ml Inj IV Q8H PRN Nausea And Vomiting Pantoprazole Sodium 40 mg 02/03/22 22:00 02/04/22 23:04 Pantoprazole 40 Mg Inj IV 40 mg BID PASCUAL Administration Sodium Chloride 10 ml 02/03/22 22:00 02/04/22 23:05 Sodium Chloride 0.9% 10 Ml Flush Syringe IV 10 ml BID PASCUAL Administration Sodium Chloride 10 ml 02/03/22 17:44 Sodium Chloride 0.9% 10 Ml Flush Syringe IV PRN PRN LINE FLUSH
[2022-02-05] MEDS: LEVOTHYROXINE 100 MCG INJ IV SCH (05:46)
[2022-02-05] MEDS ORDERED: hydrALAZINE 20 MG/1 ML INJ IV PRN (06:05)
[2022-02-05 06:22] LABS: Hematocrit 29.3 % (35.5-45.6); Hemoglobin 9.9 gm/dl (11.8-15.2)
[2022-02-05] MEDS: PANTOPRAZOLE 40 MG TAB PO SCH ×2 (09:13→17:40)
--- NOTE | 2022-02-05 12:00 | Discharge Summary ---
Providers - Providers Date of Admission: 02/03/22 18:37 Date of discharge: 02/05/22 Attending physician: THERESA JURADO 02/03/22 17:44 Consult to Physician [CONS] Routine Comment: Consulting Provider: VA TOVAR Physician Instructions: Reason For Exam: Lower GI bleed Primary care physician: DEIDRE HUBER Hospitalization Condition: Fair Disposition: 01 HOME / SELF CARE / HOMELESS Exam - Constitutional Vitals: Temp Pulse Resp BP Pulse Ox 97.5 F L 67 18 156/71 97 02/05/22 09:40 02/05/22 09:40 02/05/22 09:40 02/05/22 09:40 02/05/22 09:40 Plan Activity: advance as tolerated, other (Fall precautions) Diet: other (Soft diet advance as tolerated) Additional Instructions: if you have worsening symptoms contact MD or go to the nearest emergency room as needed. Advised to follow-up with primary care physician, GI per schedule. If you have recurrent dizziness recurrent episodes of syncope follow-up with neurologist per schedule. Strongly advised to take thyroid medications regularly/and follow-up with corporate treasurer in 1 to 2 weeks. Advised 4 days of work excuse from 02/06/2022 till 02/09/22 Follow up with: DEIDRE HUBER MD [Primary Care Provider] - 7 Days CARLA CARY MD [Staff Physician] - 10 Days SUNSHINE CHILD MD [Staff Physician] - 14 Days Forms: Accompanied Note Prescriptions: Levothyroxine [Synthroid] 100 mcg PO QAM #30 tablet
--- NOTE | 2022-02-05 12:16 | Gastroenterology Progress Note ---
Assessment and Plan No more bleeding other than the single episode that the patient had. Therefore from GI standpoint patient without any more active bleeding and has significant endocrine pathology that would benefit from correction prior to endoscopic evaluation the risks of pursuing inpatient endoscopy outweigh the benefits We will continue to follow in the meantime to ensure no more clinical bleeding was present at bedside states patient lacks insurance, given my card and encouraged him to stop by for my office before making appointment to see me to get the patient assistance program paperwork for patient's lacking insurance - Patient Problems (1) Hypothyroidism Current Visit: Yes Status: Acute Qualifiers: (2) Rectal bleeding Current Visit: Yes Status: Acute (3) Syncope Current Visit: Yes Status: Acute Subjective Date of service: 02/05/22 Principal diagnosis: GI bleeding Interval history: Patient again reports no overt bleeding. No abdominal pain. Still feels cold Objective - Constitutional Vitals: Temp Pulse Resp BP Pulse Ox 97.5 F L 67 18 156/71 97 02/05/22 09:40 02/05/22 09:40 02/05/22 09:40 02/05/22 09:40 02/05/22 09:40 General appearance: no acute distress - EENT Eyes: EOM intact - Neck Neck: supple - Respiratory Respiratory effort: normal - Labs CBC & Chem 7: 02/05/22 05:38 02/04/22 05:22 Labs: Laboratory Results - last 24 hr 02/04/22 02/04/22 02/05/22 14:54 18:33 05:38 Hgb 11.1 L 9.9 L Hct 33.9 L 29.3 L TSH 85.290 H Free T4 02/05/22 02/05/22 05:38 05:38 Hgb Hct TSH 100.000 H Free T4 0.37 L
[2022-02-05] MEDS ORDERED: hydrALAZINE 20 MG/1 ML INJ IV ONE (17:27)
[2022-02-05 17:33] VITALS: BP 177/69
[2022-02-05] MEDS ORDERED: hydrALAZINE 25 MG TAB PO SCH (22:00)
== END 2022-02-05 18:50 | disposition home or self-care (01) | DRG 379 ==
LOC: ED 07:16 → 3A 18:37
PROVIDERS: ADMIT Internal Medicine; ATTEND Internal Medicine
DX: K92.2 Gastrointestinal hemorrhage, unspecified (principal); G90.8 Other disorders of autonomic nervous system; I10 Essential (primary) hypertension; E05.90 Thyrotoxicosis, unspecified without thyrotoxic crisis or storm; Z79.82 Long term (current) use of aspirin; R55 Syncope and collapse; E89.0 Postprocedural hypothyroidism
CPT/HCPCS: 36415; 70450; 71045; 80053; 82271; 82550; 82553; 84439; 84443; 84484; 85014; 85018; 85025; 85610; 85730; 86850; 86900; 86901; 93005; G0378; J3490; C9113; J0360; J7030

== ENCOUNTER 2022-02-19 14:08 | Emergency (ER) | payer SELFPAY ==
[2022-02-20] MEDS ORDERED: ACETAMINOPHEN 500 MG TAB PO ONE (00:39)
--- NOTE | 2022-02-20 00:48 | Emergency Department Report ---
ED General Adult HPI - General Chief complaint: Weakness Stated complaint: THYROID/HIGH BLOOD PRESSURE Time Seen by Provider: 02/20/22 00:38 Source: patient Mode of arrival: Ambulatory Limitations: No Limitations - History of Present Illness Initial comments: Patient 66-year-old male with history of hypothyroidism, hypertension, recent hospitalization for same. On 02/05/2022 who presents for fever with cough x3 weeks. Patien symptoms are exacerbated by activity. Symptoms are relieved by nothing tried. Patient denies nausea vomiting. There is no back pain no shortness of breath or wheezing. Patient arrived to ED via POV patient is alert oriented x3 ambulatory with steady gait at this time and with no acute distress. - Related Data Previous Rx's Medication Instructions Recorded Last Taken Type Aspirin EC [Halfprin EC] 81 mg PO QDAY #30 tablet. 08/10/20 Unknown Rx AtorvaSTATin [Lipitor] 40 mg PO QHS #30 tablet 08/10/20 Unknown Rx Clopidogrel [Plavix] 75 mg PO QDAY #21 tablet 08/10/20 Unknown Rx Ferrous Sulfate [Feosol 325 MG tab] 325 mg PO BID #60 tablet 02/05/22 Unknown Rx Levothyroxine [Synthroid] 100 mcg PO QAM #30 tablet 02/05/22 Unknown Rx Pantoprazole [Protonix] 40 mg PO BID #60 tablet 02/05/22 Unknown Rx hydrALAZINE [Apresoline TAB] 25 mg PO Q8HR #90 tablet 02/05/22 Unknown Rx Allergies Allergy/AdvReac Type Severity Reaction Status Date / Time No Known Allergies Allergy Verified 02/03/22 07:31 ED Review of Systems ROS: Stated complaint: THYROID/HIGH BLOOD PRESSURE Other details as noted in HPI Constitutional: denies: chills, fever Eyes: denies: eye pain, eye discharge, vision change ENT: denies: ear pain, throat pain Respiratory: cough. denies: shortness of breath, wheezing Cardiovascular: edema. denies: chest pain, palpitations, dyspnea on exertion, syncope, paroxysmal nocturnal dyspnea Endocrine: no symptoms reported. denies: intolerance to heat Gastrointestinal: denies: abdominal pain, nausea, diarrhea Genitourinary: denies: urgency, dysuria Musculoskeletal: denies: back pain, joint swelling, arthralgia, myalgia Skin: as per HPI Neurological: denies: headache, weakness, paresthesias Psychiatric: denies: anxiety, depression Hematological/Lymphatic: denies: easy bleeding, easy bruising ED Past Medical Hx - Past Medical History Hx Hypertension: Yes Hx Congestive Heart Failure: No Hx Diabetes: No Hx Asthma: No Hx COPD: No Additional medical history: hyperthyroid - Social History Smoking Status: Never Smoker - Medications Home Medications: Home Medications Medication Instructions Recorded Confirmed Last Taken Type Aspirin EC [Halfprin EC] 81 mg PO QDAY #30 tablet. 08/10/20 02/04/22 Unknown Rx AtorvaSTATin [Lipitor] 40 mg PO QHS #30 tablet 08/10/20 02/04/22 Unknown Rx Clopidogrel [Plavix] 75 mg PO QDAY #21 tablet 08/10/20 02/04/22 Unknown Rx Ferrous Sulfate [Feosol 325 MG tab] 325 mg PO BID #60 tablet 02/05/22 Unknown Rx Levothyroxine [Synthroid] 100 mcg PO QAM #30 tablet 02/05/22 Unknown Rx Pantoprazole [Protonix] 40 mg PO BID #60 tablet 02/05/22 Unknown Rx hydrALAZINE [Apresoline TAB] 25 mg PO Q8HR #90 tablet 02/05/22 Unknown Rx ED Physical Exam - General Limitations: No Limitations General appearance: alert, in no apparent distress - Head Head exam: Present: atraumatic, normocephalic, normal inspection - Eye Eye exam: Present: PERRL - ENT ENT exam: Present: normal orophraynx, mucous membranes moist, TM's normal bilaterally, normal external ear exam - Neck Neck exam: Present: normal inspection, full ROM. Absent: tenderness, lymphadenopathy - Respiratory Respiratory exam: Present: normal lung sounds bilaterally. Absent: respiratory distress, wheezes, chest wall tenderness, accessory muscle use, prolonged expiratory - Cardiovascular Cardiovascular Exam: Present: regular rate, normal rhythm, normal heart sounds. Absent: systolic murmur, diastolic murmur, rubs, gallop - GI/Abdominal GI/Abdominal exam: Present: soft, normal bowel sounds. Absent: distended, tenderness, bruit - Rectal Rectal exam: Present: deferred - Extremities Exam Extremities exam: Present: normal inspection, full ROM, normal capillary refill - Back Exam Back exam: Present: normal inspection. Absent: full ROM, CVA tenderness (R), CVA tenderness (L) - Neurological Exam Neurological exam: Present: alert, oriented X3, CN II-XII intact, normal gait - Psychiatric Psychiatric exam: Present: normal affect, normal mood - Skin Skin exam: Present: warm, dry, intact, normal color. Absent: rash ED Course Vital Signs 02/19/22 14:28 Temperature 100.9 F H Pulse Rate 78 Respiratory 18 Rate Blood Pressure 123/72 O2 Sat by Pulse 98 Oximetry ED Medical Decision Making - Lab Data Labs 02/20/22 01:10 Urine Color Yellow Urine Turbidity Clear Urine pH 5.0 Ur Specific [place] 1.010 Urine Protein <15 mg/dl Urine Glucose (UA) Negative Urine Ketones Negative Urine Blood Negative Urine Nitrite Negative Ur Reducing Substances Not Reportable Urine Bilirubin Negative Urine Ictotest Not Reportable Urine Urobilinogen < 2.0 Ur Leukocyte Esterase Negative Urine WBC (Auto) 1.0 Urine RBC (Auto) 5.0 U Epithel Cells (Auto) < 1.0 Urine Mucus Few - EKG Data EKG shows normal: sinus rhythm, axis, intervals, QRS complexes Rate: normal - EKG Data When compared to previous EKG there are: no significant change Interpretation: nonspecific ST-T wave sherlyn (Sinus rhythm no ST elevated OK interpreted by ED attending. There is been no change in EKG since 02/09/2022), LVH - Radiology Data Radiology results: report reviewed, image reviewed CHEST 2 VIEWS INDICATION / CLINICAL INFORMATION: cough fever x 3 weeks. COMPARISON: Chest x-ray 02/03/2022 FINDINGS: SUPPORT DEVICES: None. HEART / MEDIASTINUM: Heart size and mediastinal contour appear within normal limits. LUNGS / PLEURA: No significant pulmonary or pleural abnormality. No pneumothorax. BONES: No significant osseous abnormality. ADDITIONAL FINDINGS: No significant additional findings. IMPRESSION: 1. No active cardiopulmonary disease. Signer Name: Nicole Gleason II, MD Signed: 02/20/2022 2:27 AM Workstation Name: [id number] Transcribed By: KAYE Dictated By: NICOLE GLEASON II, MD Electronically Authenticated By: NICOLE GLEASON II, MD Signed Date/Time: 02/20/22226 DD/ 6 TD/TT: - Medical Decision Making EKG normal no ST elevated OK noted left ventricular hypertrophy which is chronic for this patient. Chest x-ray normal infiltrates no opacities symptoms are improved with Tylenol given in ED. Patient is currently alert oriented x3 amatory with steady gait without increased shortness of breath. Patient has history of hypothyroid disease started Synthroid 1 week ago patient has prescrip tions and possession at this time. Patient has follow-up with endocrinology with primary care patient advised to keep appointments with same. And to return to emergency department should symptoms worsen. Patient and verbalized agreement and understanding with discharge plan. Patient DC'd home in stable condition at this time. DEIDRE HUBER MD [Primary Care Provider] - 7 Days CARLA CARY MD [Staff Physician] - 10 Days SUNSHINE CHILD MD [Staff Physician] - 14 Days Critical care attestation.: If time is entered above; I have spent that time in minutes in the direct care of this critically ill patient, excluding procedure time. ED Disposition Clinical Impression: Headache Qualifiers: Headache type: unspecified Headache chronicity pattern: acute headache Intractability: not intractable Qualified Code(s): R51.9 - Headache, unspecified Hypothyroidism Qualifiers: Hypothyroidism type: unspecified Qualified Code(s): E03.9 - Hypothyroidism, unspecified Disposition: 01 HOME / SELF CARE / HOMELESS Is pt being admited?: No Does the pt Need Aspirin: No Condition: Stable Instructions: Hypothyroidism, General Headache Without Cause, [id number] Additional Instructions: DEIDRE HUBER MD [Primary Care Provider] - 7 Days CARLA CARY MD [Staff Physician] - 10 Days SUNSHINE CHILD MD [Staff Physician] - 14 Days
[2022-02-20 01:49] LABS: Mucus,Urine FEW /HPF
[2022-02-20 02:06] LABS: Bilirubin,Urine Negative (Negative); Blood,Urine Negative (Negative); Color,Urine Yellow (Yellow); Protein,Urine <15 mg/dL mg/dL (Negative); Urobilinogen,Urine < 2.0 mg/dL (<2.0)
--- NOTE | 2022-02-20 02:31 | XRay Report ---
CHEST 2 VIEWS INDICATION / CLINICAL INFORMATION: cough fever x 3 weeks. COMPARISON: Chest x-ray 02/03/2022 FINDINGS: SUPPORT DEVICES: None. HEART / MEDIASTINUM: Heart size and mediastinal contour appear within normal limits. LUNGS / PLEURA: No significant pulmonary or pleural abnormality. No pneumothorax. BONES: No significant osseous abnormality. ADDITIONAL FINDINGS: No significant additional findings. IMPRESSION: 1. No active cardiopulmonary disease. Signer Name: Jeremy Peterson II, MD Signed: 02/20/2022 2:27 AM Workstation Name: [id number]
[2022-02-20 04:44] VITALS: BP 166/65
--- NOTE | 2022-02-20 18:57 | Electrocardiograph Report ---
[facility] Test Date: 2022-02-20 Test Time: 01:33:51 Pat Name: TOBIN WELLS Department: Room: Gender: M Investigation Specialist: PRANEETH : [id number] Requested By: ALVINA SCHMIDT Order Number: [id number] Reading MD: Caden Flores Measurements Intervals [place] Rate: 63 P: 21 NE: 193 QRS: 64 QRSD: 109 T: 78 QT: 408 QTc: 420 Interpretive Statements Sinus arrhythmia Probable left ventricular hypertrophy Compared to ECG 02/03/2022 07:43:39 No significant changes Electronically Signed On 02-20-2022 18:57:31 EDT by Caden Flores
== END 2022-02-20 04:44 | disposition home or self-care (01) ==
LOC: ED 14:08
DX: R51.9 Headache, unspecified (principal); E05.90 Thyrotoxicosis, unspecified without thyrotoxic crisis or storm; I10 Essential (primary) hypertension
CPT/HCPCS: 71046; 81001; 93005; 99284